=== PATIENT | female | born 1940 | race Caucasian/White ===

== ENCOUNTER 2018-12-02 14:10 | Inpatient (IN) ==
[2018-12-02] MEDS ORDERED: ZOFRAN IV ONE (14:18)
[2018-12-02] MEDS ORDERED: MORPHINE IV ONE (14:18)
[2018-12-02] MEDS ORDERED: ASPIRIN PO ONE (14:48)
[2018-12-02 14:49] LABS: BASO# 0.02 X1000 (0.0-0.2); BASO% 0.2 % (0.0-0.8); EOS# 0.09 X1000 (0.0-0.7); EOS% 0.8 % (0.0-10.0); HEMATOCRIT 43.9 % (37.0-47.0); HEMOGLOBIN 14.3 g/dL (12.0-16.0); IMM GRAN# 0.02 X1000 (0.0-0.04); IMM GRAN% 0.2 % (0.0-0.5); LYMPH% 15.1 % (20.5-51.1); MCH 28.5 PG (27-31); MCHC 32.6 g/dL (33-37); MCV 87.6 FL (81-99); MONO# 0.92 X1000 (0.11-0.59); MONO% 8.7 % (1.7-9.3); MPV 9.1 FL (7.4-10.4); NEUT# 7.97 X1000 (1.4-6.5); PLT 462 X1000 (130-400); RBC 5.01 XMIL (4.2-5.4); RDW 12.3 % (11.5-14.5); WBC 10.62 X1000 (4.8-10.8)
--- NOTE | 2018-12-02 14:51 | Diag Imaging Result Doc PS360 ---
EXAM: CHEST-2 VIEWS - 12/02/2018 HISTORY: chest pain TECHNIQUE: Chest two views COMPARISON: 05/16/2018 portable chest FINDINGS: Heart size appears within normal limits. There is some tortuosity of the thoracic aorta similar to prior. The lungs appear essentially clear. There is no pleural effusion or pneumothorax identified. IMPRESSION: No acute changes. Electronically signed by Rodger Jacobs 12/02/2018 2:48 PM
[2018-12-02 14:55] LABS: INR 0.89; PROTIME 12.8 Seconds (11.0-16.0)
[2018-12-02 14:56] LABS: PTT 30.2 Seconds (22.3-41.8)
[2018-12-02 15:11] LABS: AGAP 9; ALB/GLOB RATIO 0.9; ALBUMIN 3.4 g/dL (3.5-5.0); ALKALINE PHOSPHATASE 231 U/L (32-104); BUN 13 mg/dL (8-22); CALCIUM 9.2 mg/dL (8.8-10.2); CHLORIDE 98 mmol/L (98-107); CK PROFILE 20 U/L (24-173); COSMO 278; CREATININE 0.8 mg/dL (0.5-0.9); ESTIMATED GFR > 60; GLUCOSE 238 mg/dL (70-104); GOT 42 U/L (10-30); GPT 17 U/L (10-36); POTASSIUM 4.3 mmol/L (3.5-5.1); SODIUM 135 mmol/L (136-145); TCO2 28 mmol/L (25-35); TOTAL BILIRUBIN 0.41 mg/dL (0.20-1.00); TOTAL PROTEIN 7.3 g/dL (6.3-8.3)
--- NOTE | 2018-12-02 16:43 | PROVIDER DOCUMENTATION ---
This chart was entered by Cyndy aMria Scribe, acting as scribe for Geno Martinez MD. HPI-Chest Pain - General Chief Complaint: Chest Pain Stated Complaint: CP Time Seen by Provider: 12/02/18 14:11 Source: patient Allergies/Adverse Reactions: Patient Allergies Allergy/AdvReac Type Severity Reaction Status Date / Time brandon Allergy Unknown Verified 12/02/18 14:47 codeine Allergy NAUSEA/VOMI Verified 12/02/18 14:47 TING pineapple Allergy Unknown Verified 12/02/18 14:47 red dye Allergy Unknown Verified 12/02/18 14:47 Home Medications: Home Medication List Medication Instructions Recorded Confirmed Last Taken Type Aspirin [Aspir-Low] 81 mg PO DAILY 12/02/18 12/02/18 Unknown History Estrogens, Conjugated [Premarin] 0.625 mg PO DAILY 12/02/18 12/02/18 Unknown History Hydrochlorothiazide 25 mg PO DAILY 12/02/18 12/02/18 Unknown History Losartan [Cozaar] 100 mg PO DAILY 12/02/18 12/02/18 Unknown History - History of Present Illness-CP Nature of Presenting Problem: 78yof via EMS with hx of diabetes, HTN, hyperlipidemia c/o substernal intermittent chest pain, nausea, sob, diaphoresis since this afternoon. She reports pain with deep inspiration. She reports that she takes aspirin every day, and her last dose was this morning. EMS reports they gave the patient 2 nitro. She denies hx of cardiac disease, OR. She reports she had a stress test "a long time ago." She reports her PCP as Dr. Leong. She denies fever, chills, vomiting. Location: reports: substernal Chest Pain Radiation: reports: no radiation Quality of Pain: reports: other ("pain") Severity in ED: mild, moderate Onset/Duration: this afternoon Timing: still present, intermittent, constant Context/Activities at Onset: reports: none Modifying Factors: improves with: nothing Associated Symptoms: reports: diaphoresis, nausea, shortness of breath. denies: fever/chills, vomiting Aspirin Treatment Today: provided at home (one aspirin) Prior Chest Pain/Cardiac Workup: reports: stress test (pt reports last stress test was "a long time ago"). denies: heart attack Similar Symptoms Previously?: No Recently Seen Here or By Another Healthcare Provider: No Review of Systems - Adult - REVIEW OF SYSTEMS - ADULT Constitutional: denies: chills, fever Eyes: denies: discharge, dry eyes Ears, Nose, Mouth & Throat: denies: ear discharge, ear pain Cardiovascular: reports: chest pain. denies: palpitations Respiratory: reports: shortness of breath. denies: cough Gastrointestinal: reports: nausea. denies: diarrhea, vomiting Genitourinary: denies: dysuria, hematuria Musculoskeletal: denies: back pain, muscle aches, muscle weakness Integumentary: reports: no symptoms reported Neurological: denies: dizziness/vertigo, headache/migraines Psychiatric: reports: no symptoms reported Endocrine: reports: excessive sweating. denies: change in skin pigment Hematologic/Lymphatic: reports: no symptoms reported Allergic/Immunologic: reports: no symptoms reported All Other Systems: Reviewed and Negative Past History - Adult - PAST MEDICAL HISTORY-ADULT Review of Records: reports: Old Records Reviewed, Nursing Assessment Review, Med ications Reviewed Cardiovascular: reports: HTN, hyperlipidemia Endocrine/Immune: reports: Diabetes - PRIOR SURGERIES/PROCEDURES Surgical/Procedure History: reports: hysterectomy - IMMUNIZATION STATUS Childhood Immunizations: See Nurse Assessment Flu Vaccine: See Nurse Assessment - FAMILY HISTORY Family History: reviewed, not pertinent - SOCIAL HISTORY Smoking: non-smoker Substance Use: denies Living Situation: family Physical Exam-General - PHYSICAL EXAM-ADULT Initial Vital Signs Reviewed: Yes - CONSTITUTIONAL General Appearance: alert, mild distress, anxious, other (pt has oxygen via nasal cannula) - EYES Eyes: PERRL/EOMI, pink conjunctivae - NECK Neck: non-tender, supple - RESPIRATORY Respiratory: decreased breath sounds (throughout). negative: wheezing - CARDIOVASCULAR Cardiovascular: regular rate, rhythm, no murmur - GASTROINTESTINAL (ABDOMEN) Abdominal Exam: non tender, soft. negative: distended, guarding - SKIN Integumentary: normal color, warm/dry, diaphoresis. negative: cyanosis - NEUROLOGIC Neurologic: grossly normal, no motor/sensory deficits - PSYCHIATRIC Psych/Mental Status: oriented x 3, anxious, tearful - HEART Score HEART Score: History: Moderately Suspicious HEART Score: ECG: Normal HEART Score: Age: > or = 65 Years HEART Score: Risk Factors for Atherosclerotic Disease: > or = 3 Risk Factors or History of Atherosclerotic Disease HEART Score: Troponin: < or = Normal Limit Total HEART Score:: 5 Progress - PLAN OF CARE/RESULTS Progress/Plan/Lab Results: Vital Signs - 8 hr 12/02/18 14:21 Temperature 98.4 F Pulse Rate 82 Respiratory Rate 18 Blood Pressure 171/80 O2 Sat by Pulse Oximetry 96 Laboratory Results - last 24 hr 12/02/18 12/02/18 12/02/18 14:40 14:40 14:40 WBC 10.62 RBC 5.01 Hgb 14.3 Hct 43.9 MCV 87.6 MCH 28.5 MCHC 32.6 L RDW Std Deviation 12.3 Plt Count 462 H MPV 9.1 Immature Gran % (Auto) 0.2 Neut % (Auto) 75.0 Lymph % (Auto) 15.1 L [place] % (Auto) 8.7 Eos % (Auto) 0.8 Baso % (Auto) 0.2 Immature Gran # (Auto) 0.02 Neut # (Auto) 7.97 H Lymph # (Auto) 1.60 [place] # (Auto) 0.92 H Eos # (Auto) 0.09 Baso # (Auto) 0.02 PT INR PTT (Actin FS) Sodium 135 L Potassium 4.3 Chloride 98 Carbon Dioxide 28 Anion Gap 9 BUN 13 Creatinine 0.8 Estimated GFR/1.73 m2 > 60 BUN/Creatinine Ratio 16 Glucose 238 H Calculated Osmolality 278 Calcium 9.2 Total Bilirubin 0.41 AST 42 H ALT 17 Alkaline Phosphatase 231 H Creatine Kinase 20 L Troponin T [id number] Pept 195 Total Protein 7.3 Albumin 3.4 L Globulin 3.9 Albumin/Globulin Ratio 0.9 12/02/18 12/02/18 14:40 14:40 WBC RBC Hgb Hct MCV MCH MCHC RDW Std Deviation Plt Count MPV Immature Gran % (Auto) Neut % (Auto) Lymph % (Auto) [place] % (Auto) Eos % (Auto) Baso % (Auto) Immature Gran # (Auto) Neut # (Auto) Lymph # (Auto) [place] # (Auto) Eos # (Auto) Baso # (Auto) PT 12.8 INR 0.89 PTT (Actin FS) 30.2 Sodium Potassium Chloride Carbon Dioxide Anion Gap BUN Creatinine Estimated GFR/1.73 m2 BUN/Creatinine Ratio Glucose Calculated Osmolality Calcium Total Bilirubin AST ALT Alkaline Phosphatase Creatine Kinase Troponin T < 0.010 Yvm-P-Lekjbxdugvy Pept Total Protein Albumin Globulin Albumin/Globulin Ratio Orders Category Date Time Status Cardiac Monitoring DIRECTED Care 12/02/18 14:17 Active Oxygen Therapy- ED Nursing DIRECTED Care 12/02/18 14:17 Active Saline Loc NOW Care 12/02/18 14:17 Active CHEST-2 VIEWS [RAD] Stat Exams 12/02/18 14:17 Completed CBC WITH ELECTRONIC DIFF [HEME] Stat Lab 12/02/18 14:40 Completed CK PROFILE [SP CHEM] Stat Lab 12/02/18 14:40 Completed COMPREHENSIVE METABOLIC PANEL [CHEM] Stat Lab 12/02/18 14:40 Completed PRO B-NATRIURETIC PEPTIDE Stat Lab 12/02/18 14:40 Completed PROTIME WITH INR [COAG] Stat Lab 12/02/18 14:40 Completed PTT [COAG] Stat Lab 12/02/18 14:40 Completed TROPONIN T Stat Lab 12/02/18 14:40 Completed TROPONIN T Stat Lab 12/02/18 16:30 Received Aspirin Med 12/02/18 14:48 Discontinued 325 mg PO NOW ONE Morphine Med 12/02/18 14:18 Discontinued 4 mg IV NOW ONE Ondansetron [Zofran] Med 12/02/18 14:18 Discontinued 4 mg IV NOW ONE CP/SOB/Palp >45 yrs of Age Stat Oth 12/02/18 14:17 Ordered EKG [EKG] Stat Ther 12/02/18 14:17 Ordered Result Diagrams: 12/02/18 14:40 12/02/18 14:40 - EKG 1 Time of EKG reading by physician:: 14:17 EKG Read and Signed by:: Geno Martinez EKG Interpretation (*Must complete 3 of following elements*): Normal Rate: 93 Rhythm: Normal sinus rhythm [place]: normal ST Wave: normal Comments: - ST elevation 2 Time of EKG reading by physician:: 16:30 EKG Read and Signed by:: Geno Martinez EKG Interpretation (*Must complete 3 of following elements*): Abnormal Rate: 95 Rhythm: Sinus rhythm [place]: normal ST Wave: normal Comments: - ST elevation - XRAY 1 XRAY Study: Chest Impression: Abnormal (FINDINGS: Heart size appears within normal limits. There is some tortuosity of the thoracic aorta similar to prior. The lungs appear essentially clear. There is no pleural effusion or pneumothorax identified. IMPRESSION: No acute changes. Electronically signed by Rodger Jacobs 12/02/2018 2:48 PM) - CONSULTS/PCP/HOSPITALIST Notification #1 *Consult/PCP/Hospitalist*: Dr Madden Time Discussed: 16:41 Consult Disposition: Will see in ED, Admit Departure - Departure Date of Disposition Decision: 12/02/18 Time of Disposition Decision: 16:42 DIAGNOSIS: Chest pain Disposition: ADMITTED INPATIENT 09 Certified Medical Emergency: Emergent Condition: Stable Referrals and Follow-Ups: Jaquan Leong MD [Primary Care Provider] - - Critical Care Note This patient required my direct & personal management of CC.: No Attestation - Physician/ CECILIO Attestation Patient care was provided by Advanced Practice Provider:: No The physician spent face to face time with patient:: Yes Advanced Practice Provider documentation review:: Supervising physician onsite and consulted in the evaluation and care of this patient. The physician did have a face to face encounter with the patient. This chart was documented by the indicated scribe, (Cyndy Maria Scribe) and accurately reflects the services I performed and decisions made by me, Geno Martinez MD, as attested by the provider's signature.
[2018-12-02] MEDS ORDERED: TYLENOL PO PRN (18:19)
--- NOTE | 2018-12-02 19:53 | HISTORY AND PHYSICAL ---
PRIMARY CARE PHYSICIAN: Dr. Jaquan Leong. CHIEF COMPLAINT: Chest pain. HISTORY OF PRESENT ILLNESS: A 78-year-old white female with past medical history significant for diabetes, hypertension, reflux disease, allergic rhinitis, and chronic low back pain presents for evaluation of above-mentioned symptoms. Current history of present illness began at approximately 11 a.m. this morning. The patient states at that time she walked to her porch. Upon sitting patient developed acute onset left chest pain. Initially the pain was described as located in the lateral aspect of her chest. Quickly, this radiated to the medial chest and to the left jaw. She developed nausea, shortness of breath and diaphoresis. She described the pain as an intense heaviness. Because of her symptoms, she contacted EMS immediately. Upon arrival, a nitroglycerin was provided. The patient noted significant improvement in her symptoms initially. Within several minutes the pain returned. An additional nitroglycerin was provided. With this, the pain has essentially resolved. She described a only a mild heaviness in the lower rib region since that time. EMS transported the patient to the emergency department immediately. Upon arrival, full evaluation was pursued. EKG demonstrates no evidence of acute ST or T-wave abnormalities. Initial set of cardiac enzymes returned negative. Because of patient's convincing history and with a history of diabetes, hypertension and a family history of coronary artery disease, patient will be admitted to the hospital for full evaluation and management of this condition. PAST MEDICAL HISTORY: 1. Type 1 diabetes. 2. Hypertension. 3. Reflux disease. 4. Low back pain status post surgery x2. 5. Neuropathy. 6. Allergic rhinitis. CURRENT MEDICATIONS: 1. Humalog 75/25, 35 units in the morning and 28 units in the evening. 2. Hydrochlorothiazide 25 mg daily. 3. Losartan 100 mg daily. 4. Estrogen conjugated 0.625 mg daily. 5. Aspirin 81 mg daily. 6. Pantoprazole 40 mg daily. 7. Burd[place] 7.5/325 one tablet 4 times daily as needed. ALLERGIES: The patient states codeine causes agitation. SOCIAL HISTORY: Patient is a retired nurse. She denies tobacco, alcohol and illicit drug use. FAMILY HISTORY: Patient's father passed at age 61 secondary to complications of metastatic cancer, NOS. Patient's mother passed at age 80 secondary to complications of congestive heart failure. The patient has had 2 sisters pass with an acute coronary , 1 at age 68 and 1 at age 76. REVIEW OF SYSTEMS: A 12-point review of systems was performed. Pertinent positives and negatives noted in history present illness. PHYSICAL EXAMINATION: VITAL SIGNS: Temperature 98.4 degrees, heart rate 82, respirations 18, blood pressure is 171/80. GENERAL: Well nourished, well developed, no acute distress. HEENT: Normocephalic, atraumatic. Pupils equal, round, react to light. Extraocular muscles intact. Sclerae anicteric. [place] conjunctivae. Oral and nasopharynx clear without exudate. NECK: Supple. No lymphadenopathy. No thyromegaly. No bruits auscultated. CARDIOVASCULAR: Regular rate and rhythm. No significant murmurs, rubs, or gallops. PULMONARY: Clear to auscultation bilaterally. ABDOMEN: Soft, nontender, nondistended. Positive bowel sounds. EXTREMITIES: Moves all extremities well. No significant clubbing, cyanosis or edema. NEUROLOGIC: Cranial nerves 2-12 grossly intact. Motor and sensory grossly intact. PSYCHOLOGIC: Reveals underlying anxiety. MUSCULOSKELETAL: Reveals some pain to palpation of the left lower anterior ribs. LABORATORY DATA: White blood cell count 10.62, hemoglobin 14.3, hematocrit 43.9, platelet count 462,000. PT 12.8, INR 0.89, PTT is 30.2. Sodium 135, potassium 4.3, chloride 98, bicarb 28, BUN 13, creatinine 0.8, glucose 238, calcium 9.2, total bilirubin 0.41, total protein 7.3, albumin 3.4, alkaline phosphatase 231, AST 42, ALT 17, CK total 20, troponin less than 0.010. Chest x- ray revealed no acute changes. ASSESSMENT AND PLAN: A 78-year-old white female with past medical history as noted presents for evaluation of chest discomfort. Initial presentation is quite concerning for the possibility of underlying ischemic heart disease. Patient does have a very strong family history as she has had 2 sisters pass at a young age with an acute coronary . On examination today, patient does have some pain to palpation of the left lower anterior ribs. This pain is described as intense, but different from her previous heaviness. The patient will be admitted to the hospital for full evaluation and management of unstable angina. 1. Admit to General Medicine. 2. Unstable angina-initial cardiac enzymes are negative. EKG is negative. Chest x-ray is negative. Patient did, however, achieve improvement with nitroglycerin. At this point, I do feel inpatient evaluation is most appropriate. We will place patient on telemetry. We will follow patient with cardiac enzymes every 8 hours. We will recheck an EKG in the morning. Plan to consult Cardiology in the morning. We will defer ischemic evaluation to cardiology's discretion. 3. Diabetes-patient has longstanding disease. This certainly increases the risk for underlying ischemic heart disease. She is treated with Humalog 75/25, 35 units in the morning and 28 units in the evening at home. We will decrease the dosage to 25 units in the morning and 20 units in the evening while hospitalized with a change in her diet. We will follow serial Accu- Cheks. We will determine if further adjustment is necessary. 4. Hypertension-blood pressure today is elevated. For now, we will continue losartan and hydrochlorothiazide. We will place 1/2 inch of nitroglycerin paste as she has achieved improvement in her chest pain with nitroglycerin. We will follow this as well. 5. Reflux disease-we will continue patient on pantoprazole therapy. We will remain aware that reflux could present in a similar fashion. 6. Low back pain-patient has chronic disease. We will continue patient on as-needed [place] therapy. 7. Fluid, electrolytes, nutritional. Monitor electrolytes. Saline lock IV. Cardiac prudent diet, NPO after midnight. 8. Prophylaxis. The patient will be placed on subcu Lovenox. cc: MD Jaquan De Leon MD
[2018-12-02] MEDS: NITROGLYCERIN TOP SCH (21:05)
[2018-12-02] MEDS: LOVENOX SUBQ SCH (21:05)
[2018-12-02] MEDS: NORCO-7.5 PO PRN (21:06)
[2018-12-03] MEDS: ZOFRAN IV PRN ×3 (00:03→21:57)
[2018-12-03] MEDS: NITROGLYCERIN TOP SCH ×2 (03:33→09:20)
[2018-12-03 05:47] LABS: BASO# 0.03 X1000 (0.0-0.2); BASO% 0.4 % (0.0-0.8); EOS# 0.18 X1000 (0.0-0.7); EOS% 2.6 % (0.0-10.0); HEMATOCRIT 42.8 % (37.0-47.0); LYMPH# 1.43 X1000 (1.2-3.4); LYMPH% 20.7 % (20.5-51.1); MCH 28.6 PG (27-31); MCHC 32.7 g/dL (33-37); MCV 87.5 FL (81-99); MONO# 0.88 X1000 (0.11-0.59); MONO% 12.8 % (1.7-9.3); MPV 9.6 FL (7.4-10.4); NEUT# 4.38 X1000 (1.4-6.5); NEUT% 63.5 % (42.2-75.2); PLT 412 X1000 (130-400); RBC 4.89 XMIL (4.2-5.4); RDW 12.3 % (11.5-14.5)
[2018-12-03 06:12] LABS: AGAP 11; ALB/GLOB RATIO 1.1; ALBUMIN 3.3 g/dL (3.5-5.0); ALKALINE PHOSPHATASE 327 U/L (32-104); BUN 10 mg/dL (8-22); CHLORIDE 101 mmol/L (98-107); COSMO 284; CREATININE 0.6 mg/dL (0.5-0.9); ESTIMATED GFR > 60; GLUCOSE 234 mg/dL (70-104); GOT 181 U/L (10-30); GPT 91 U/L (10-36); POTASSIUM 4.5 mmol/L (3.5-5.1); SODIUM 139 mmol/L (136-145); TCO2 27 mmol/L (25-35); TOTAL BILIRUBIN 0.94 mg/dL (0.20-1.00); TOTAL PROTEIN 6.2 g/dL (6.3-8.3)
[2018-12-03] MEDS: HUMALOG MIX 75/25 SUBQ SCH ×2 (06:25→06:29)
[2018-12-03] MEDS: HYDROCHLOROTHIAZIDE PO SCH (09:19)
[2018-12-03] MEDS: COZAAR PO SCH (09:19)
[2018-12-03] MEDS: NORCO-7.5 PO PRN (09:19)
[2018-12-03] MEDS: PREMARIN PO SCH (09:19)
[2018-12-03] MEDS: ASPIRIN EC PO SCH (09:19)
--- NOTE | 2018-12-03 10:47 | PROGRESS NOTE ---
DATE: 12/03/2018 SUBJECTIVE: Patient was admitted yesterday with left-sided chest discomfort and associated nausea, shortness of breath and diaphoresis. Initial set of cardiac enzymes were negative. EKG returned negative. The patient was followed with telemetry and serial cardiac enzymes overnight. Cardiac enzymes remain negative. This morning, patient is extremely anxious. She is tearful during my interview. She is questioning why she is NPO. She also notes having a history of anxiety and difficulty with change. In addition to anxiety, patient does note some weakness as well as some "shakiness." She denies significant chest discomfort at present time. She has developed mild right upper quadrant pain. She denies fevers, chills, nausea, vomiting, or shortness of breath at present time. OBJECTIVE: T-max 98.4 degrees, heart rate 70 to 82, respirations 18, blood pressure 140 to 171 over 65 to 81.General: Well nourished, well developed, no acute distress. Cardiovascular: Regular rate and rhythm. No significant murmurs, rubs, or gallops. Pulmonary: Clear to auscultation bilaterally. Abdomen: Soft tenderness to palpation in the right upper quadrant. No guarding or rebound. Positive bowel sounds. Extremities: Moves all extremities well. No significant clubbing, cyanosis, or edema. Dermatologic: Evaluation reveals no evidence of rash. LABORATORY DATA: White blood cell count 6.90, hemoglobin 14.0, hematocrit 42.8, platelet counts 412,000. Sodium 139, potassium 4.5, chloride 101, bicarb 27, BUN 10, creatinine 0.6, glucose 234, calcium 9.0, total bilirubin 0.94, total protein 6.2, albumin 3.3, alkaline phosphatase 327, AST 181, ALT 91. ASSESSMENT AND PLAN: 1. Unstable angina/chest discomfort-the patient's presentation was concerning for possible ischemic etiology. Patient does have a of recent family history of 2 sisters passing with a presumed acute coronary . The patient's cardiac enzymes, thus far, have been negative. EKG demonstrates no evidence of ischemic change. Cardiology has been consulted. We will defer Cardiology opinion to his discretion. At this point, with elevated transaminases as described below, chest discomfort, may be gastrointestinal in origin. 2. Transaminitis/elevated alkaline phosphatase-this is quite interesting. Levels have increased considerably from yesterday. This raises the question as to the etiology. Certainly gallbladder disease with a transient passed stone is a consideration. Medication induced also is to be considered. The only new medications from yesterday are Lovenox and nitroglycerin. These seem less likely to be a culprit. We will check an abdominal ultrasound today. We will determine if further intervention is necessary. 3. Diabetes - Patient has longstanding disease. As she is in NPO, we will discontinue her Humalog 75/25. We will transition patient to sliding scale insulin. We will resume home regimen once her diet has been resumed. 4. Hypertension-the patient's blood pressure is slightly elevated despite losartan, hydrochlorothiazide, losartan and Nitropaste. For now, we will continue her current regimen. 5. Reflux disease-we will continue patient on pantoprazole therapy. 6. Low back pain-patient has chronic disease. We will continue as needed [place] therapy. 7. Anxiety-unfortunately, patient's anxiety is very high this morning. I discussed this in detail with her and her son. We will start patient on low-dose Xanax to be used as needed. The patient better understand our current plan. For evaluating both heart and right upper quadrant pain. I suspect that with better understanding, her anxiety also may improve. 8. Prophylaxis-we will continue patient on subcutaneous Lovenox. Should gallbladder ultrasound returned abnormal, we will need to consider discontinuing this prior to surgical intervention. 9. Nutrition-the patient will remain NPO for her ultrasound. We will resume a diet if this returns without biliary obstruction. We will follow this. 10. Disposition-at this point, patient continues to require penitentiary care in a hospital setting. We will plan discharge home once appropriate. cc: MD Jaquan De Leon MD
[2018-12-03] MEDS: XANAX PO PRN ×2 (11:00→22:08)
--- NOTE | 2018-12-03 11:15 | Diag Imaging Result Doc PS360 ---
EXAM: US GB < RUQ (LIMITED) HISTORY: RUQ pain/ transaminitis TECHNIQUE: Right upper quadrant ultrasound COMPARISON: None. FINDINGS: Normal pancreas. Normal inferior vena cava. No abdominal aortic aneurysm. No hepatic abnormality. Normal right kidney. No hydronephrosis. There is sludge within the gallbladder. There is gallbladder wall thickening. Questionable gallbladder diverticula with sludge versus fluid in the gallbladder wall. The common bile duct measures 6 mm. IMPRESSION: Findings suspicious for cholecystitis Electronically signed by Gregory Beck 12/03/2018 11:13 AM
--- NOTE | 2018-12-03 11:25 | CARDIOLOGY CONSULTATION ---
DATE: 12/03/2018 REASON FOR CONSULTATION: Cardiology was consulted for chest pain. HISTORY OF PRESENT ILLNESS: Ms. Ila Dean is a 78-year-old lady, who was admitted with chest pain, diaphoresis. Her cardiac enzymes were negative. Electrocardiogram was normal. She has history of diabetes, family history of coronary artery disease, comes with complaints of having chest discomfort which she describes as a tightness, and a left-sided chest pain when she came in. The chest pain radiated to her left jaw and she described the pain as intense and heavy. She contacted the EMS and was brought to the emergency room and subsequently admitted. This morning she was set up to have an abdominal ultrasound given her abnormal liver function test and patient stated that while they were doing the ultrasound she had discomfort in her right hypochondrium and she has also noticed some tightness across her lower chest and abdominal area as well. There were no palpitations, there was no dizziness or syncope. She denies any fevers or chills. A 14 point review of systems was done. REVIEW OF SYSTEM: GI: As above. In addition, there is no history of hematemesis or melena. Central nervous system: No focal weakness to suggest a CVA or TIA. Genitourinary: There is no dysuria or hematuria. Respiratory System: There is no history of cough, expectoration, hemoptysis. There is no history of fevers or chills. PAST MEDICAL HISTORY: 1. Diabetes. 2. Hypertension. 3. Gastroesophageal reflux disease. 4. Neuropathy. 5. Allergic rhinitis. PAST SURGICAL HISTORY: Back surgery. ALLERGIES: She is allergic to brandon, codeine, pineapple, red dye. HOME MEDICATIONS: 1. Mclean. 2. Protonix 40. 3. Enteric-coated aspirin. 4. Losartan 100. 5. Humalog 75-25, as directed. 6. Hydrochlorothiazide 25. SOCIAL HISTORY: Patient is a retired nurse. FAMILY HISTORY: Patient's father passed at 61, complications of metastatic cancer. Mother passed at 80. The patient has 2 sisters with acute coronary, one at the age of 68, one at the age of 76. PHYSICAL EXAMINATION: Vitals: Blood pressure 161/81. HEENT: Atraumatic, normocephalic. Pupils were equal and reacting to light. Cardiovascular System: Normal jugular venous pressure. There is no thyromegaly. No carotid bruit. First and second heart sounds were heard. There was no S3-S4 gallop. Respiratory system: Normal air entry. There is no crepitations or rhonchi. Abdomen: Soft with some tenderness right upper quadrant. Central nervous system: Alert, was moving all 4 extremities. Extremities: Revealed no pedal edema. LABORATORY: Chemistry: Revealed sodium 139, potassium 4.5, BUN 10, creatinine 0.6. Abnormal liver function tests. AST 1181, ALT 91, alkaline phosphatase 327, which were abnormal and worsening since her admission last night. 3 sets of cardiac enzymes were negative. Hematology: WBC 6.9, hemoglobin 14, hematocrit 42, platelet count of 412,000. IMAGING: Chest x-ray unremarkable. ASSESSMENT AND PLAN: 1. Ms. Ila Dean is a 78-year-old lady with history of hypertension, diabetes, family history of coronary artery disease, comes with complaints of having left-sided chest pain with radiation to the jaw. However, since her admission, her liver function tests were abnormal and she has undergone right upper quadrant ultrasound, which is suggestive of sludge with thickening of the gallbladder; however, this was a verbal note and a detailed official note on the ultrasound of the gallbladder is pending. She also complains of having tenderness at the right hypochondrium. Given this, her symptoms are probably related to gallbladder issues. I would recommend proceeding with further workup and surgery, if needed. 2. From a cardiac standpoint, she has been ruled out for myocardial infarction by cardiac enzymes. Electrocardiogram was normal and we will get an echocardiogram to assess cardiac and valvular function. 3. Hypertension. Continue with home medications, diabetes. Thank you for the consult. We will follow hospital course. cc: MD Jaquan Mosley MD
[2018-12-03] MEDS: HUMALOG SUBQ SCH ×3 (12:22→21:53)
[2018-12-03] MEDS: ZOSYN 3.375 GM in NS 50 ML IV SCH ×2 (12:23→18:17)
[2018-12-03] MEDS ORDERED: DIPRIVAN 1% ONE (13:37)
[2018-12-03] MEDS ORDERED: QUELICIN (DOSE) ONE (13:43)
[2018-12-03] MEDS ORDERED: ROBINUL ONE ×2 (13:43→14:53)
[2018-12-03] MEDS ORDERED: XYLOCAINE-MPF 2% ONE (13:43)
[2018-12-03] MEDS ORDERED: NEOSTIGMINE ONE ×2 (14:03→15:50)
[2018-12-03] MEDS ORDERED: SODIUM CHLORIDE 0.9% ONE (14:15)
[2018-12-03] MEDS ORDERED: LR 1,000 ML ONE (14:15)
[2018-12-03] MEDS ORDERED: SENSORCAINE-MPF 0.5%/EPI 1:200,000 ONE (14:15)
--- NOTE | 2018-12-03 14:37 | GENERAL SURGERY CONSULTATION ---
DATE: 12/03/2018 REQUESTING PHYSICIAN: Is Dr. Tommy Madden. CONSULT CONCERNING: Cholecystitis. HISTORY OF PRESENT ILLNESS: A 78-year-old female with past medical history for diabetes, hypertension, reflux disease, chronic lower back pain, presented initially for chest pain began yesterday. She was given standard workup for chest pain and found to have no obvious source. She was admitted and then noted today to have elevation in her LFTs, concerning for gallbladder issue. She had an ultrasound that showed cholecystitis. She does report right upper quadrant pain. I was asked to weigh an opinion. PAST MEDICAL HISTORY: 1. Includes diabetes mellitus type 1. 2. Hypertension. 3. Gastroesophageal reflux disease. 4. Low back pain. 5. Neuropathy. 6. Allergic rhinitis. PAST SURGICAL HISTORY: Includes hysterectomy, back surgery, breast reduction, shoulder surgery. HOME MEDICATIONS: Reviewed. ALLERGIES: Codeine. SOCIAL HISTORY: Retired nurse. Denies alcohol, tobacco, or illicit drugs. FAMILY HISTORY: Positive for metastatic cancer, congestive heart failure, acute coronary disease. REVIEW OF SYSTEMS: Full 10 point review of systems obtained negative as specified in HPI. PHYSICAL EXAM: Vital Signs: Patient is currently afebrile. Her vital signs are stable. General: No acute distress but appears uncomfortable female looks stated age. HEENT: Normocephalic, atraumatic. Pupils equal, round, reactive to light. Mucous membranes moist. Oropharynx benign. Neck: Supple, trachea midline. Cardiovascular: Regular rate and rhythm. Lungs: Grossly clear. Abdomen: Soft, tender to palpation right upper quadrant. Positive Quintanilla sign. Extremities: Moves all extremities. Neurologic: Grossly intact. Skin: No signs of jaundice. Vascular: All extremities perfused. LABORATORY: White blood count is normal, hematocrit is normal, platelet count normal. AST slightly elevated at 118, ALT is elevated at 91, alkaline phosphatases elevated at 327, bilirubin 0.94 which is increased since admission. Ultrasound reviewed and imaging report noted. ASSESSMENT AND PLAN: A 78-year-old female with cholecystitis. Cholecystitis. At this time this could be likely the cause of her chest pain. Given these findings, will plan on surgical intervention. Discussed with the risks, benefits, alternatives of the procedure risks including but not limited to bleeding, infection, risk of anesthesia, risk of common bile duct injury, risk of bile leak, risk of injuring surrounding organs discussed. She wants to proceed. Will try to do a cholangiogram at the time. cc: MD Jaquan Sue MD MTDD
[2018-12-03] MEDS ORDERED: ZOFRAN ONE ×2 (14:53→17:03)
[2018-12-03] MEDS ORDERED: ZEMURON ONE (14:53)
--- NOTE | 2018-12-03 15:52 | ECHO REPORT ---
ORDER DATE: 12/03/2018 2-D ECHOCARDIOGRAM: ECHOCARDIOGRAPHIC MEASUREMENTS: 1. Interventricular septum 1.2. 2. Left ventricular posterior wall 0.9. 3. Diastolic diameter 4.0. 4. Left atrium 3. 5. Aorta 3.0. SUMMARY: 1. Aortic valve leaflets are trileaflet. 2. Pulmonic valve was normal. Tricuspid valve was normal. Mitral valve was normal. Normal left ventricular cavity size. Estimated ejection fraction of 65-70%. 3. There is mitral annular calcification. 4. There is mild tricuspid regurgitation. Peak velocity across the tricuspid valve was 2.6 m/sec. Pulmonary artery systolic pressure of 38 mmHg. 5. Peak velocity across the aortic valve less than 2 m/sec. There is no aortic stenosis or regurgitation. 6. There is diastolic dysfunction. 7. There is mild mitral regurgitation. 8. Peak velocity across the aortic valve less than 2 m/sec. There is no aortic stenosis or regurgitation. 9. There is no pericardial effusion or obvious intracardiac mass or thrombus seen. cc: MD Jaquan Mosley MD
[2018-12-03] MEDS ORDERED: HUMALOG MIX 75/25 SUBQ SCH (16:00)
[2018-12-03] MEDS ORDERED: LR 500 ML ONE (16:41)
[2018-12-03] MEDS: DILAUDID ONE ×6 (16:43→17:35)
[2018-12-03] MEDS ORDERED: OFIRMEV 1000 MG/ISOTONIC SOLN 1,000 MG/100 ML BOTTLE ONE (17:41)
[2018-12-03] MEDS ORDERED: NITROGLYCERIN ONE (17:41)
[2018-12-03] MEDS ORDERED: NORCO-7.5 ONE (18:30)
[2018-12-03] MEDS ORDERED: NS 1,000 ML ONE (18:49)
[2018-12-03] MEDS ORDERED: NITROGLYCERIN SL PRN (18:52)
[2018-12-03] MEDS ORDERED: MORPHINE IV PRN (18:53)
--- NOTE | 2018-12-03 19:52 | OPERATIVE NOTE ---
PROCEDURE DATE: 12/03/2018 PREOPERATIVE DIAGNOSIS: Cholecystitis. POSTOPERATIVE DIAGNOSIS: Suppurative cholecystitis. PROCEDURE: Laparoscopic cholecystectomy. SURGEON: Kevin Leon MD. DISPATCH SUPERVISOR: None. ANESTHESIA: General endotracheal. OPERATIVE FINDINGS: Very difficult surgery secondary to a very thickened gallbladder, pus in the gallbladder noted making a suppurative cystic duct was very friable and short, but I think I was able to get clips across it. Thickness of the gallbladder does raise the suspicion for the possibility of malignancy versus just very inflamed gallbladder. COMPLICATIONS: None at the time of this dictation. ESTIMATED BLOOD LOSS: 100 mL. SPECIMENS REMOVED: Gallbladder. DRAINS: A 19-Chinese drain. BRIEF HISTORY: A 78-year-old female presenting with chest pain. Through workup it was found that she had cholecystitis. We did discuss the risks, benefits and alternatives of procedure. Risks including but not limited to bleeding, infection, risk of anesthesia, risk of common bile duct injury and bile leak. Risk of injuring other organs discussed. All questions answered. DESCRIPTION OF PROCEDURE: After informed consent was obtained, the patient brought to the operative theatre, transferred to the operating table, and placed in supine position. General endotracheal anesthesia was then performed without complication. A formal time out was then performed confirming patient, date, procedure. All in agreement. At that time, attention was given to the abdomen. An infraumbilical incision was made through which using Optiview technique we inserted an 11 mm trocar, connected insufflation. Pneumoperitoneum was achieved. Under direct visualization, we placed three more trocars, all 5 mm, one subxiphoid, two in the right upper quadrant. Using these, the gallbladder was identified. It was very inflamed, very difficult to grasp. It was very thickened, but we were able to bluntly dissect some omentum off and retract the gallbladder up with some difficulty cephalad. We were able to dissect out the cystic duct. It was very short and very friable. I initially tried to dissect around and place a clip. The 1st several clips fell off after we did the ductotomy. We placed several clips in the area and attempted to place an Endoloop. I think we were able to get two good clips across it. We irrigated out the area where the cystic duct was and I did not see any continued drainage of bile. We were unable to perform a cholangiogram given the short length of the cystic duct. Purulence came out of the gallbladder side of the cystic duct. We then continued to dissect out the gallbladder. I believe that her cystic artery was incorporated in those previous clips. But we dissected the gallbladder off the gallbladder fossa. I had to leave part of it in the posterior- superior aspect on the liver itself, but we bovied the mucosa. It was very thickened, very inflamed, very edematous, and again purulence was in it. We irrigated out the abdomen, but there was significant amount of bleeding with 100 mL total during the procedure. Given this the concern of the cystic duct and how inflamed the gallbladder was and the purulence, elected to leave a drain. We placed it in after we had removed the gallbladder completely from the gallbladder fossa. We irrigated out the abdomen copiously, but there was still a significant amount of blood in the area that was not amenable to draining from the suction. We secured the drain in place with the most lateral trocar, placed the gallbladder in an Endobag and brought it out through the infraumbilical incision that had to be enlarged. We then removed all trocars, disconnected insufflation. Pneumoperitoneum was released. We then closed all skin incisions after closing the infraumbilical incision with [id number] stitches of 0 Vicryl. All skin incisions were closed with 4-0 Monocryl. The patient tolerated the procedure well. She was transferred back to the recovery room. I updated the family on the risk of bile leak and the potential for other findings in the pathology. She will need to stay on antibiotics for at least several days. cc: MD Jaquan Sue MD MTDD
[2018-12-03] MEDS: NS 1,000 ML IV SCH (21:49)
[2018-12-03] MEDS: LOVENOX SUBQ SCH (21:52)
[2018-12-03] MEDS: MORPHINE IV PRN (21:57)
[2018-12-04] MEDS: MORPHINE IV PRN ×3 (00:13→04:22)
[2018-12-04] MEDS: ZOSYN 3.375 GM in NS 50 ML IV SCH ×4 (00:41→17:15)
[2018-12-04] MEDS: NORCO-7.5 PO PRN ×2 (00:52→05:05)
[2018-12-04] MEDS: NS 1,000 ML IV SCH ×2 (05:06→15:44)
[2018-12-04] MEDS ORDERED: DILAUDID IV PRN (05:58)
[2018-12-04] MEDS: XANAX PO PRN (06:53)
[2018-12-04] MEDS: HUMALOG SUBQ SCH ×4 (06:53→22:20)
--- NOTE | 2018-12-04 07:31 | EKG Report ---
Test Performed on : 12/03/2018 5:17:00 PM Test Reason : chest pain Blood Pressure : / mmHG Vent. Rate : 077 BPM Atrial Rate : 077 BPM P-R Int : 142 ms QRS Dur : 070 ms QT Int : 384 ms P-R-T Axes : 029 -15 035 degrees QTc Int : 434 ms Sinus rhythm. with marked sinus arrhythmia. Otherwise normal ECG When compared with ECG of 03-DEC-2018 06:22, (Unconfirmed) No significant change was found Confirmed by oSnny MALIK, Patrice ([id number]) on 12/04/2018 9:06:41 AM
--- NOTE | 2018-12-04 07:35 | EKG Report ---
Test Performed on : 12/03/2018 06:22:02 AM Test Reason : chest pain Blood Pressure : / mmHG Vent. Rate : 080 BPM Atrial Rate : 080 BPM P-R Int : 136 ms QRS Dur : 076 ms QT Int : 368 ms P-R-T Axes : 033 -03 063 degrees QTc Int : 424 ms Normal sinus rhythm. Normal ECG When compared with ECG of 02-DEC-2018 16:25, (Unconfirmed) Sinus rhythm. has replaced Electronic ventricular pacemaker Confirmed by Sonny MALIK, Patrice ([id number]) on 12/04/2018 9:04:23 AM
[2018-12-04 07:42] LABS: BASO# 0.01 X1000 (0.0-0.2); BASO% 0.1 % (0.0-0.8); EOS# 0.06 X1000 (0.0-0.7); EOS% 0.4 % (0.0-10.0); HEMATOCRIT 41.4 % (37.0-47.0); HEMOGLOBIN 13.3 g/dL (12.0-16.0); IMM GRAN# 0.03 X1000 (0.0-0.04); IMM GRAN% 0.2 % (0.0-0.5); LYMPH# 0.63 X1000 (1.2-3.4); LYMPH% 4.6 % (20.5-51.1); MCH 28.4 PG (27-31); MCHC 32.1 g/dL (33-37); MCV 88.3 FL (81-99); MONO% 9.5 % (1.7-9.3); MPV 9.5 FL (7.4-10.4); NEUT# 11.65 X1000 (1.4-6.5); NEUT% 85.2 % (42.2-75.2); RBC 4.69 XMIL (4.2-5.4); RDW 12.6 % (11.5-14.5); WBC 13.68 X1000 (4.8-10.8)
[2018-12-04 08:11] LABS: AGAP 19; ALB/GLOB RATIO 0.8; ALBUMIN 2.9 g/dL (3.5-5.0); ALKALINE PHOSPHATASE 242 U/L (32-104); BUN 12 mg/dL (8-22); CALCIUM 8.3 mg/dL (8.8-10.2); CHLORIDE 95 mmol/L (98-107); COSMO 281; CREATININE 0.8 mg/dL (0.5-0.9); ESTIMATED GFR > 60; GLUCOSE 335 mg/dL (70-104); GOT 49 U/L (10-30); GPT 69 U/L (10-36); POTASSIUM 4.2 mmol/L (3.5-5.1); SODIUM 134 mmol/L (136-145); TCO2 20 mmol/L (25-35); TOTAL BILIRUBIN 0.58 mg/dL (0.20-1.00); TOTAL PROTEIN 6.7 g/dL (6.3-8.3)
[2018-12-04 08:13] LABS: BANDS 5 % (0-1); LYMPHS 5 % (21-51); MONO 9 % (1-9); SEGS 81 % (42-75)
[2018-12-04 08:17] LABS: PLT 459 X1000 (130-400)
[2018-12-04] MEDS ORDERED: BASAGLAR SUBQ ONE (08:51)
[2018-12-04] MEDS: OFIRMEV 1000 MG/ISOTONIC SOLN 1,000 MG/100 ML BOTTLE IV SCH ×2 (09:36→17:15)
[2018-12-04] MEDS: PREMARIN PO SCH (09:37)
[2018-12-04] MEDS: COZAAR PO SCH (09:37)
[2018-12-04] MEDS: ASPIRIN EC PO SCH (09:37)
[2018-12-04] MEDS: XANAX PO SCH ×2 (09:37→20:06)
--- NOTE | 2018-12-04 09:47 | GENERAL SURGERY PROGRESS NOTE ---
DATE: 12/04/2018 SUBJECTIVE: Patient had a rough night complaining of significant pain. I have adjusted her pain medicine. OBJECTIVE: Vital Signs: Patient is currently afebrile. Vital signs have been stable. General: Upon entering the room, patient was resting but became more agitated while I examined her. Cardiovascular: Regular rate and rhythm. Lungs: Grossly clear. Abdomen: Tender to palpation right upper quadrant seems appropriate on exam. NHAN drains in place with mostly just serosanguineous output. I do not see any bile noted in the drains. LABORATORY: Currently pending for this morning. ASSESSMENT AND PLAN: A 78-year-old female status post laparoscopic cholecystectomy for suppurative cholecystitis. 1. Postoperative state at this time. Her cholecystectomy was very difficult secondary to the inflammation of the gallbladder. I think this is contributing at to her postoperative pain. She also had a significant amount of oozing and bleeding, which may be irritating her intra- abdominal compartment. I think the patient also has some degree of anxiety, which may be exacerbated by the postoperative pain. I have changed her pain medicine around. I have put her on a clear liquid diet. Hopefully with time she will start to heal up and start to have less pain. 2. We will keep a close eye on her Prosper-Watts drain. At this point, just has sanguinous output. I do not see any obvious bile but we will have to keep an eye on it. We will keep her on antibiotics for at least another couple days and monitor as we try to control her pain. cc: MD Jaquan Sue MD
--- NOTE | 2018-12-04 10:52 | EKG Report ---
Test Performed on : 12/02/2018 2:15:28 PM Test Reason : chest pain Blood Pressure : / mmHG Vent. Rate : 093 BPM Atrial Rate : 093 BPM P-R Int : 142 ms QRS Dur : 072 ms QT Int : 340 ms P-R-T Axes : 049 -18 050 degrees QTc Int : 422 ms Normal sinus rhythm. Normal ECG When compared with ECG of 16-MAY-2018 22:15, No significant change was found Unconfirmed Result
--- NOTE | 2018-12-04 10:56 | EKG Report ---
Test Performed on : 12/02/2018 4:25:16 PM Test Reason : chest pain Blood Pressure : / mmHG Vent. Rate : 095 BPM Atrial Rate : 095 BPM P-R Int : 144 ms QRS Dur : 068 ms QT Int : 346 ms P-R-T Axes : 038 -07 041 degrees QTc Int : 434 ms Sinus rhythm. with occasional ventricular-paced complexes Abnormal ECG When compared with ECG of 02-DEC-2018 14:15, (Unconfirmed) Electronic ventricular pacemaker has replaced Sinus rhythm. Unconfirmed Result
[2018-12-04] MEDS: RELISTOR SUBQ ONE (12:31)
[2018-12-04] MEDS: DILAUDID IV PRN ×2 (12:38→20:06)
--- NOTE | 2018-12-04 13:43 | PROGRESS NOTE ---
DATE: 12/04/2018 SUBJECTIVE: The patient was admitted over the weekend with chest pain, which turned out to be a severely diseased gallbladder with cholecystitis. She is status post laparoscopic cholecystectomy. The procedure was described to me by Dr. Leon this morning at 7:00 in the morning as an incredibly difficult and purulent gallbladder. He was able to complete it laparoscopically though. This morning, the patient is very distraught. She is in pain. Attempts to explain her pain and the treatment that I was going to prescribe today fell on deaf ears as she was too agitated to listen. Her son was present during our conversation, and I tried to explain to him how her recovery would likely be delayed because of the severity of her illness. OBJECTIVE: Temperature 99.0, pulse rate 107, respiratory rate 18, blood pressure 148/63, and 94% saturated on room air. On physical exam, the patient is agitated and complaining about pain. She wanted a different regimen of stronger pain medication. Lungs are clear to auscultation. Cardiovascular is regular. LABORATORY: White cell count is 13.7 and hematocrit 41.4. Blood sugar has been on the rise and is now topping out at around 300. It is noted that all previous cardiac enzymes were negative. Alkaline phosphatase and liver function tests were moderately elevated, but seemed to be on a downward trend. ASSESSMENT AND PLAN: 1. The patient is status post a very difficult laparoscopic cholecystectomy per Dr. Leon. She remains on antibiotics and support. I imagine that her pain control has been difficult to this point mainly due to multiple factors including poor glycemic control, extreme agitation and anxiety on the part of the patient, and her chronic use of pain medications for her chronic back pain. It is difficult to achieve appropriate levels of pain control. We also are concerned, because of the difficulty of surgery, and the postoperative ileus. I plan to give the patient some regular and higher doses of Dilaudid. She will get Relistor subcutaneously. I am also going to hang Ofirimev 3] times a day for the next 3 days. We will continue to monitor the patient's white count, and she will remain on antibiotics. 2. The patient's blood sugar has escalated. I think that is partially due to her level of agitation and anxiety. She was on split mix regimen of insulin. I have given her dose of Lantus as well as increased the level of her sliding scale insulin. We will continue to monitor this, and hopefully we can get her back to a split mix regimen as soon as possible as she is usually well controlled. 3. Hypertension as noted. 4. Chest pain. The patient's cardiac enzymes have been negative, and she was seen by Cardiology. Everything seems to be okay. 5. Reflux disease. Aware. 6. Chronic lower back pain. We are aware of this. 7. The patient's anxiety will be addressed with regular dosing of Xanax twice daily. cc: Jaquan Leong MD MTDD
[2018-12-04] MEDS ORDERED: PRILOSEC PO ONE (19:51)
[2018-12-04] MEDS ORDERED: MAALOX PLUS LIQUID PO ONE (19:51)
[2018-12-05] MEDS: OFIRMEV 1000 MG/ISOTONIC SOLN 1,000 MG/100 ML BOTTLE IV SCH ×3 (00:05→17:14)
[2018-12-05] MEDS: ZOSYN 3.375 GM in NS 50 ML IV SCH ×5 (00:05→23:59)
[2018-12-05] MEDS: NS 1,000 ML IV SCH ×4 (00:05→23:46)
[2018-12-05] MEDS: DILAUDID IV PRN ×6 (00:20→22:08)
[2018-12-05] MEDS: HUMALOG SUBQ SCH ×4 (05:39→22:05)
[2018-12-05] MEDS: PRILOSEC PO SCH ×2 (05:39→06:00)
[2018-12-05] MEDS: ZOFRAN IV PRN ×2 (05:45→22:06)
[2018-12-05] MEDS: PREMARIN PO SCH (08:19)
[2018-12-05] MEDS: XANAX PO SCH ×2 (08:19→20:29)
[2018-12-05] MEDS: ASPIRIN EC PO SCH (08:19)
[2018-12-05] MEDS: COZAAR PO SCH (08:19)
--- NOTE | 2018-12-05 08:58 | GENERAL SURGERY PROGRESS NOTE ---
DATE: 12/05/2018 SUBJECTIVE: Patient seems to be doing better this morning. OBJECTIVE: Vital Signs: The patient is currently afebrile. Her vital signs are stable. General Examination: No acute distress. Cardiovascular: Regular rate and rhythm. Lungs: Grossly clear. Abdomen: Soft. Appropriately tender. NHAN drain in place. Still looks like serosanguineous output. No bile noted. Laboratory: From yesterday reviewed. Bilirubin is normal. AST, ALT, and alkaline phosphatase are all trending down. ASSESSMENT AND PLAN: A 78-year-old female status post laparoscopic cholecystectomy for suppurative cholecystitis. Postoperative state. At this time, she seems to be doing okay. We will advance her to a low-fat diet. We will need to monitor her Prosper-Watts drain output. We will keep her on antibiotics, given the amount of contamination in her abdomen. We will keep the Prosper-Watts drain in place. Pain control is going to be somewhat of an issue, so we will continue to monitor her and see if we can get good pain control. cc: MD Jaquan Sue MD
[2018-12-05] MEDS: HUMALOG MIX 75/25 SUBQ SCH (15:56)
--- NOTE | 2018-12-05 16:21 | PROGRESS NOTE ---
DATE: 12/05/2018 SUBJECTIVE: The patient states she feels much better than yesterday. She states she has passed some gas and belched several times, which made her abdomen feel considerably better. She has gotten up to walk to the bathroom to urinate multiple times and is feeling better. She still does not have much appetite. She has not run any fevers or had any chills. She has had no nausea and vomiting. She still has drainage from her right upper quadrant HNAN drain. OBJECTIVE: Vital Signs: 97.6, 94, 137/65, 95% saturated on room air. General: The patient is alert, oriented, conversive and appropriate. She is much calmer than yesterday. Lungs: Are clear. Cardiovascular: Regular. Abdomen: Shows scarce bowel sounds. She is still diffusely tender. The drain and bandage around the drain in the right upper quadrant has bloody discharge and the drain contains a bloody possibly bilious discharge. LABORATORIES: None. ASSESSMENT AND PLAN: 1. The patient seems to be recovering well from a pretty serious case of cholecystitis. She is postop and doing much better today. Dr. Leon has advanced her diet. We will continue antibiotics for abdominal infection given the amount of pus in her gallbladder. Pathology is still pending. 2. The patient's diabetes is not well controlled at present. She is just now starting to eat and I am going to put her back on her home regimen of 75/25 mix with sliding scale still intact. 3. The patient's blood pressure is stable. 4. The patient's anxiety and pain control is adequate. cc: Jaquan Leong MD
[2018-12-06] MEDS: DILAUDID IV PRN ×4 (03:00→21:38)
[2018-12-06] MEDS: MAALOX PLUS LIQUID PO PRN ×2 (03:22→21:08)
[2018-12-06] MEDS: OFIRMEV 1000 MG/ISOTONIC SOLN 1,000 MG/100 ML BOTTLE IV SCH (03:53)
--- NOTE | 2018-12-06 06:50 | GENERAL SURGERY PROGRESS NOTE ---
DATE: 12/06/2018 SUBJECTIVE: The patient seems to be doing okay, although she said she has had a rough night. OBJECTIVE: Vital Signs: The patient is currently afebrile, although her O2 saturation is monitoring 88%. She seems to be resting fine. General: No acute distress. Resting comfortably. Cardiovascular: Regular rate and rhythm. Lungs: No increased labored breathing. Abdomen: Soft, appropriately tender. Prosper-Watts drain in place with just sanguinous output. No bile noted. ASSESSMENT AND PLAN: A 78-year-old female status post laparoscopic cholecystectomy for suppurative cholecystitis. Postoperative state at this time, she is doing okay. Her Prosper-Watts drain has not shown any drainage that looks bilious. I think she is probably close to being able to be discharged home. She probably needs to continue on some antibiotics and we will switch her off IV antibiotics and transition her over to Augmentin. Pain control is still going to be an issue, but hopefully we can get her pain a little bit better controlled with the plan on discharge in the near future. cc: MD Jaquan Sue MD
[2018-12-06] MEDS: PRILOSEC PO SCH (07:03)
[2018-12-06] MEDS: HUMALOG SUBQ SCH ×4 (07:04→21:14)
[2018-12-06 07:22] LABS: BASO# 0.02 X1000 (0.0-0.2); BASO% 0.1 % (0.0-0.8); EOS% 0.6 % (0.0-10.0); HEMATOCRIT 34.8 % (37.0-47.0); HEMOGLOBIN 10.9 g/dL (12.0-16.0); IMM GRAN# 0.04 X1000 (0.0-0.04); IMM GRAN% 0.2 % (0.0-0.5); LYMPH% 6.1 % (20.5-51.1); MCH 28.5 PG (27-31); MCHC 31.3 g/dL (33-37); MCV 90.9 FL (81-99); MONO# 1.22 X1000 (0.11-0.59); MONO% 6.8 % (1.7-9.3); MPV 9.4 FL (7.4-10.4); NEUT# 15.45 X1000 (1.4-6.5); NEUT% 86.2 % (42.2-75.2); PLT 381 X1000 (130-400); RBC 3.83 XMIL (4.2-5.4); RDW 12.5 % (11.5-14.5); WBC 17.93 X1000 (4.8-10.8)
[2018-12-06 07:45] LABS: AGAP 14; ALB/GLOB RATIO 0.7; ALBUMIN 2.4 g/dL (3.5-5.0); ALKALINE PHOSPHATASE 141 U/L (32-104); BUN 12 mg/dL (8-22); CALCIUM 8.2 mg/dL (8.8-10.2); CHLORIDE 102 mmol/L (98-107); COSMO 285; CREATININE 0.6 mg/dL (0.5-0.9); ESTIMATED GFR > 60; GLUCOSE 264 mg/dL (70-104); GOT 7 U/L (10-30); GPT 23 U/L (10-36); POTASSIUM 3.7 mmol/L (3.5-5.1); SODIUM 138 mmol/L (136-145); TCO2 22 mmol/L (25-35); TOTAL BILIRUBIN 0.34 mg/dL (0.20-1.00); TOTAL PROTEIN 5.8 g/dL (6.3-8.3)
[2018-12-06] MEDS: NS 1,000 ML IV SCH (08:09)
[2018-12-06] MEDS: ZOFRAN IV PRN ×2 (08:10→13:56)
--- NOTE | 2018-12-06 08:52 | PROGRESS NOTE ---
DATE: 12/06/2018 SUBJECTIVE: The patient states that she is feeling better. She was able to get up some yesterday to go back and forth to the bathroom and to the hallway. Her abdomen is still somewhat tender. She is still passing gas. She is eating a little bit, but her appetite has not really returned. Pain control is effective. OBJECTIVE: Vital Signs: 98.4, 91, 18, 143/78, 91% saturated on room air. Lungs: The patient's lungs are clear. Cardiovascular: Regular and not tachycardic. Abdomen: Bowel sounds are present and are more prominent than they were yesterday. Her abdomen is still distended. She has some bloody drainage in her NHAN drain, but it is less than yesterday. LABORATORY: White cell count is elevated at 17.9, hematocrit 34.8. Serum electrolytes are good. Sugars 258. Liver function tests have continued to trend downward and have essentially returned to baseline level. ASSESSMENT AND PLAN: 1. The patient is status post cholecystectomy a couple of days ago. She is feeling much better. I plan to loosen up some of her tethers and discontinue her telemetry, ofirimev and IV fluids. I am going to start her back on her 4 times a day Reynolds which she has taken at home for many years. She will still have Dilaudid for breakthrough. Hopefully, she will not need it nearly as much. I am looking for discharge by Tuesday. Hopefully, we can get the drain out and get her stabilized at that point in sufficient form to go home. 2. The patient's diabetes is marginally controlled. We put her back on her 75/25 mix with sliding scale intact. 3. Blood pressure stable. 4. The patient's anxiety and pain control is adequate. We did add her Xanax which I think has helped. cc: Jaquan Leong MD MTDD
[2018-12-06] MEDS: HUMALOG MIX 75/25 SUBQ SCH ×2 (10:00→17:53)
[2018-12-06] MEDS: XANAX PO SCH (10:02)
[2018-12-06] MEDS: COZAAR PO SCH (10:03)
[2018-12-06] MEDS: PREMARIN PO SCH (10:03)
[2018-12-06] MEDS: AUGMENTIN PO SCH ×2 (10:04→21:08)
[2018-12-06] MEDS: NORCO-7.5 PO SCH ×5 (10:04→21:13)
[2018-12-06] MEDS: HYDROCHLOROTHIAZIDE PO SCH (10:21)
[2018-12-07] MEDS: DILAUDID IV PRN ×6 (01:24→22:01)
[2018-12-07] MEDS: XANAX PO SCH ×3 (01:29→22:10)
[2018-12-07] MEDS: MAALOX PLUS LIQUID PO PRN (04:30)
[2018-12-07] MEDS: PRILOSEC PO SCH (06:19)
[2018-12-07] MEDS: HUMALOG SUBQ SCH ×4 (06:20→22:12)
--- NOTE | 2018-12-07 06:30 | GENERAL SURGERY PROGRESS NOTE ---
DATE: 12/07/2018 SUBJECTIVE: The patient seems to be doing okay. She said she had a good day yesterday. Overall looks like she has been hemodynamically stable, although she had a little episode of tachycardia in the 130s. Otherwise, she has been relatively stable. LABORATORY: Her labs look appropriate for her postoperative procedure. Her bilirubin is not elevated. Her AST, ALT and alkaline phosphatase are all decreasing. She does not have bile coming out of her Prosper-Watts drain. From a surgical point of view, I think she can be discharged home in the next 24 hours. I would like to keep her Prosper-Watts drain in place and let her go home with it given the difficulty with her surgery and to monitor any kind of bile leak. cc: MD Jaquan Sue MD
[2018-12-07] MEDS: HUMALOG MIX 75/25 SUBQ SCH ×2 (07:49→18:59)
[2018-12-07] MEDS: AUGMENTIN PO SCH ×2 (08:40→22:10)
[2018-12-07] MEDS: HYDROCHLOROTHIAZIDE PO SCH (08:40)
[2018-12-07] MEDS: PREMARIN PO SCH (08:40)
[2018-12-07] MEDS: NORCO-7.5 PO SCH ×4 (08:40→22:10)
[2018-12-07] MEDS: COZAAR PO SCH (08:40)
[2018-12-07] MEDS: ZOFRAN IV PRN ×2 (09:29→22:01)
--- NOTE | 2018-12-07 13:25 | PROGRESS NOTE ---
DATE: 12/07/2018 SUBJECTIVE: The patient is sitting up at the side of the bed with her head in her hands. She is emotional and somewhat overwrought. She had a coughing spell this morning, which was fairly severe and made her abdomen start hurting again. She feels nauseated now and has not been eating her normal amount of food. PHYSICAL EXAMINATION: Vital Signs: 98.0, 95, 21, 151/76, 91% saturated on room air. The patient's lungs are clear. Cardiovascular is regular. Abdomen shows scarce bowel sounds. It is slightly distended, but she is obese. I do hear some bowel sounds present. She has sanguinous drainage in her NHAN drain. LABORATORY: There was no laboratory drawn today. I do note that the patient's blood sugar was 70 last night, and at 6 o'clock this morning was 64, 70 at 6:30 this morning, and then 110 at 11. ASSESSMENT AND PLAN: 1. The patient is status post cholecystectomy, still has a Prosper-Watts drain in, and according to her, Dr. Leon has told her that she is going to go home with this. It does not appear to be draining bile. Yesterday, she was started back on her [place] 7.5, but she says that is not holding her, and she is still requiring Dilaudid. I believe that she expects to be 100% pain free at all times, rather than having it tolerable. We discussed her getting up and moving around as much as possible. She seemed to have done this yesterday. We discussed nutrition and caloric intake, which is high enough to support recovery from surgery, as well as her usual insulin doses. 2. Noted that the patient had low sugar this morning. This is likely due to inadequate p.o. intake this morning and/or yesterday afternoon. Again encouraged to eat. 3. Blood pressure is stable. 4. Anxiety is reasonably controlled. She has continued on the Xanax during the hospitalization and will likely go home on some extended-release format of that. I am hopeful that she will have some more meaningful recovery today and be able to be discharged tomorrow. cc: Jaquan Leong MD
[2018-12-08] MEDS: DILAUDID IV PRN ×4 (02:20→11:51)
[2018-12-08] MEDS: ZOFRAN IV PRN (05:08)
--- NOTE | 2018-12-08 06:27 | GENERAL SURGERY PROGRESS NOTE ---
DATE: 12/08/2018 SUBJECTIVE: Patient seems to be doing okay. She is feeling better. OBJECTIVE: Vital signs: Patient is currently afebrile. Her vital signs are stable. General: No acute distress. Cardiovascular: Regular rate and rhythm. Lungs: Grossly clear. Abdomen: Soft. Appropriately tender. NHAN drain with serosanguineous output. ASSESSMENT AND PLAN: A 78-year-old female status post cholecystectomy. 1. Cholecystectomy. At this time, patient's cholecystectomy was because of suppurative cholecystitis. She is doing well. We have got her on Augmentin. I think she would probably go home with Augmentin. I think she can go home today. We will defer to her primary care physician. cc: MD Jaquan Sue MD
[2018-12-08] MEDS: HUMALOG SUBQ SCH ×2 (06:28→11:54)
[2018-12-08] MEDS: PRILOSEC PO SCH (06:29)
[2018-12-08] MEDS: HUMALOG MIX 75/25 SUBQ SCH (06:30)
[2018-12-08] MEDS: NORCO-7.5 PO SCH (09:04)
[2018-12-08] MEDS: XANAX PO SCH (09:04)
[2018-12-08] MEDS: AUGMENTIN PO SCH (09:04)
[2018-12-08] MEDS: COZAAR PO SCH (09:04)
[2018-12-08] MEDS: HYDROCHLOROTHIAZIDE PO SCH (09:04)
[2018-12-08] MEDS: PREMARIN PO SCH (09:04)
[2018-12-08] MEDS: ASPIRIN EC PO SCH (09:08)
--- NOTE | 2018-12-08 11:51 | DISCHARGE SUMMARY ---
ADMISSION DATE: 12/02/2018 DISCHARGE DATE: 12/08/2018 DISCHARGE DIAGNOSES: 1. Acute suppurative cholecystitis. 2. Generalized abdominal pain. 3. Generalized anxiety. 4. Hypertension. 5. Type 1 diabetes, poorly controlled. 6. Other chronic pain. CONSULTATIONS: Dr. Kevin Leon. PROCEDURES: Laparoscopic cholecystectomy. HOSPITAL COURSE: This 78-year-old white female presented with chest pain, but over the course of evaluation this evolved into more of an epigastric pain and abdominal ultrasound showed cholecystitis. Dr. Leon was consulted. Dr. Arellano had been consulted earlier as a result of the chest pain, but no findings were initially apparent in regard to chest pain. Dr. Leon took the patient to surgery and had a very difficult time with a suppurative gallbladder, but he was able to complete the procedure laparoscopically. The patient returned to the floor postoperatively and had considerable abdominal bloating and swelling, but fairly rapidly recovered from that. Her appetite was slow to return as well, but we eventually got her to where she was eating adequate amounts to reinstitute her usual insulin dose. The patient suffers from a fair degree of anxiety on a regular basis, and I put her on some alprazolam during her hospitalization, which seemed to calm her very effectively. We are going to continue this on outpatient basis at least temporarily. Postoperatively, the patient had a NHAN drain which continued to drain a small amount of sanguinous fluid. There did not appear to be any bile in that drain fluid. I am not sure what the plan is with the drain, but she could likely keep it in until she sees Dr. Leon next week. The patient was initially on Zosyn, but that was then changed to Augmentin per Dr. Leon's order, and she tolerated this well. She will be discharged home on the Augmentin. The only changes in the patient's home medication regimen are the addition of Augmentin and alprazolam ER once a day. Those prescriptions are on the discharge chart. The patient should arrange follow-up with Dr. Leon in 1 week and arrange to see me in about 2 weeks. cc: Jaquan Leong MD
[2018-12-08 11:53] VITALS: BP 143/67
--- NOTE | 2018-12-08 12:24 | Diag Imaging Result Doc PS360 ---
EXAM: FLAT/UPRIGHT ABD/1 VIEW CHEST INDICATION: abdominal bloating and pain, s/p cholecystectomy TECHNIQUE: 3 views COMPARISON: Chest radiograph dated 12/02/2018 FINDINGS: Cholecystectomy clips are noted in the right upper quadrant. A catheter also projects over the right upper quadrant. There are nonspecific bowel gas and stool patterns. There is no obstructive bowel pattern. There is no evidence of large volume free abdominal gas. There is blunting of the left costophrenic angle suggesting a possible small effusion. The lungs are grossly clear, otherwise. The cardiomediastinal silhouette and central vasculature are grossly unremarkable. IMPRESSION: 1.Nonspecific abdomen. 2.Suggestion of a small left basilar effusion. Electronically signed by Marcelo Velez 12/08/2018 12:22 PM
== END 2018-12-08 13:15 | disposition home or self-care (01) | DRG 418 ==
LOC: SUPCPDRO → ED 14:10 → 3N 17:55
PROVIDERS: ADMIT Internal Medicine; ATTEND Internal Medicine
CPT/HCPCS: 71020; 71046; 74022; 76705; 80053; 82550; 82948; 83880; 84484; 85025; 85610; 85730; 88304; 88313; 93005; 93010; 93306; 94761; 94799; 96374; 96375; 99285; A9270; C1751; J0131; J0330; J1170; J1650; J1815; J2270; J2405; J2543; J7030; J7120; Q9966; Q9967; XXXXX

== ENCOUNTER 2019-02-02 00:25 | Inpatient (IN) ==
[2019-02-02 02:21] LABS: URINE SOURCE CATH
[2019-02-02 02:25] LABS: BILIRUBIN URINE NEGATIVE (NEGATIVE); BLOOD URINE TRACE (NEGATIVE); COLOR ORANGE; GLUCOSE URINE >1000 mg/dL (NEGATIVE); KETONE URINE 10 mg/dL (NEGATIVE); LEUKOCYTES URINE LARGE (NEGATIVE); NITRITE URINE POSITIVE (NEGATIVE); PROTEIN URINE TRACE mg/dL (NEGATIVE); SP GRAVITY URINE 1.022; TURBIDITY URINE HAZY (CLEAR); UR EPITHELIAL CELLS <10 /HPF (<10); URINE BACTERIA 4+ /HPF; URINE RBC <10 /HPF (<10); URINE WBC TNTC /HPF (<10); UROBILINOGEN URINE NORMAL (NORMAL)
[2019-02-02 02:50] LABS: UR AMPHETAMINES QUAL NONE DETECTED (NONE DETECT); UR BARBITUATES QUAL NONE DETECTED (NONE DETECT); UR BENZODIAZEPIN QUAL PRESUMPTIVE POSITIVE (NONE DETECT); UR CANNABINOIDS QUAL NONE DETECTED (NONE DETECT); UR COCAINE QUAL NONE DETECTED (NONE DETECT); UR METHADONE QUAL NONE DETECTED (NONE DETECT); UR OPIATES QUAL PRESUMPTIVE POSITIVE (NONE DETECT); UR OXYCODONE QUAL NONE DETECTED (NONE DETECT); UR PCP QUAL NONE DETECTED (NONE DETECT)
[2019-02-02 02:54] LABS: BASO# 0.03 X1000 (0.0-0.2); BASO% 0.3 % (0.0-0.8); EOS# 0.07 X1000 (0.0-0.7); EOS% 0.7 % (0.0-10.0); HEMATOCRIT 41.8 % (37.0-47.0); HEMOGLOBIN 13.6 g/dL (12.0-16.0); IMM GRAN# 0.04 X1000 (0.0-0.04); IMM GRAN% 0.4 % (0.0-0.5); LYMPH# 2.81 X1000 (1.2-3.4); LYMPH% 27.4 % (20.5-51.1); MCHC 32.5 g/dL (33-37); MONO# 1.07 X1000 (0.11-0.59); MONO% 10.4 % (1.7-9.3); MPV 9.3 FL (7.4-10.4); NEUT# 6.25 X1000 (1.4-6.5); NEUT% 60.8 % (42.2-75.2); PLT 379 X1000 (130-400); RBC 4.86 XMIL (4.2-5.4); RDW 14.6 % (11.5-14.5); WBC 10.27 X1000 (4.8-10.8)
[2019-02-02] MEDS ORDERED: ROCEPHIN 1 GM in NS 50 ML IV ONE (03:01)
[2019-02-02] MEDS ORDERED: NS 1,000 ML IV ONE (03:01)
[2019-02-02 03:23] LABS: AGAP 8; ALBUMIN 3.2 g/dL (3.5-5.0); ALKALINE PHOSPHATASE 101 U/L (32-104); BUN 10 mg/dL (8-22); CALCIUM 8.7 mg/dL (8.8-10.2); CHLORIDE 100 mmol/L (98-107); COSMO 270; CREATININE 0.7 mg/dL (0.5-0.9); ESTIMATED GFR > 60; GLUCOSE 153 mg/dL (70-104); GOT 12 U/L (10-30); GPT 9 U/L (10-36); LIPASE 32 U/L (13-60); SODIUM 134 mmol/L (136-145); TCO2 26 mmol/L (25-35); TOTAL BILIRUBIN 0.38 mg/dL (0.20-1.00); TOTAL PROTEIN 6.3 g/dL (6.3-8.3)
--- NOTE | 2019-02-02 06:32 | PROVIDER DOCUMENTATION ---
This chart was entered by Fabiola Rouse Scribe, acting as scribe for Brandi Abdul MD. HPI-Neurological Disorder - General Chief Complaint: Altered Mental Status Stated Complaint: AMS Time Seen by Provider: 02/02/19 01:20 Source: patient, family Allergies/Adverse Reactions: Patient Allergies Allergy/AdvReac Type Severity Reaction Status Date / Time brandon Allergy Unknown Verified 02/02/19 01:19 codeine Allergy NAUSEA/VOMI Verified 02/02/19 01:19 TING pineapple Allergy Unknown Verified 02/02/19 01:19 red dye Allergy Unknown Verified 02/02/19 01:19 Home Medications: Home Medication List Medication Instructions Recorded Confirmed Last Taken Type Aspirin [Aspir-Low] 81 mg PO DAILY 12/02/18 02/02/19 Unknown History Estrogens, Conjugated [Premarin] 0.625 mg PO DAILY 12/02/18 02/02/19 Unknown History Hydrochlorothiazide 25 mg PO DAILY 12/02/18 02/02/19 Unknown History Losartan [Cozaar] 100 mg PO DAILY 12/02/18 02/02/19 Unknown History Pantoprazole [Protonix] 40 mg PO DAILY@0700 12/02/18 02/02/19 Unknown History Alprazolam E.r. [Xanax Xr] 0.5 mg PO QAM #30 tab 12/08/18 02/02/19 Unknown Rx Tjmkq-D-Avhoiazxkldhl [Beano] 1 - 2 tab PO AC 02/02/19 02/02/19 Unknown History Hydrocodone/APAP 7.5 mg/325 mg 1 ea PO 4XDAY PRN 02/02/19 02/02/19 Unknown History [[place]-7.5] Insulin Humalog 75/25 [Humalog Mix 22 unit SUBQ QPM 02/02/19 02/02/19 Unknown History 75/25] Insulin Humalog 75/25 [Humalog Mix 30 unit SUBQ QAM 02/02/19 02/02/19 Unknown History 75/25] Insulin Lispro [Humalog] 1 unit SQ AC + HS PRN 02/02/19 02/02/19 Unknown History Pumpkin Seed Extract/Soy Germ [Azo 1 cap PO DAILY 02/02/19 02/02/19 Unknown History Bladder Control Capsule] - History of Present Illness-Neuro Nature of Presenting Problem: Pt 79/F presenting to ED w/ AMS. Son at bedside sts that he talked to her around 2:30 today and she was fine, talked to her again around 9pm and she was confused and did not know who he was. She was very weak and he had to help her stand but appeared to be globally weak rather than weak on the right or left. She has been mumbling and confused w/ her words, and then will briefly make sense again. Pt has IDDM as well and blood sugar levels w/ EMS were 301, 400 at home. Was given insulin and she ate a snack. Pt confused on arrival and unable to provide history. Son also states pt had a cholecystetcomy on 12/03/[address] Leon which had a prolonged post-operative course due to the severity of her cholecystitis and pt has been generally weak ever since. Severity: reports: moderate Onset/Duration: reports: 4-6 hours ago Timing: reports: still present Context: reports: none Character of Altered Mental Status: reports: disoriented Any recent trauma/injury?: reports: none Character of Deficits: reports: new weakness, altered sensation Cognitive Baseline: alert but disoriented Gait Baseline: walks without assistance Associated Symptoms: reports: confusion, other ("word salad"). denies: headache, slurred speech Similar Symptoms Previously?: No Recently seen or treated by another doctor?: No Review of Systems - Adult - REVIEW OF SYSTEMS - ADULT Constitutional: reports: no symptoms reported. denies: chills, fever Eyes: reports: no symptoms reported Ears, Nose, Mouth & Throat: reports: no symptoms reported Cardiovascular: reports: no symptoms reported Respiratory: reports: no symptoms reported Gastrointestinal: reports: no symptoms reported. denies: abdominal pain, diarrhea, nausea, vomiting Genitourinary: reports: no symptoms reported Musculoskeletal: reports: no symptoms reported Integumentary: reports: no symptoms reported Neurological: reports: other (word salad). denies: dizziness/vertigo, heada marcos/migraines, numbness, slurred speech Psychiatric: reports: no symptoms reported Endocrine: reports: no symptoms reported Hematologic/Lymphatic: reports: no symptoms reported Allergic/Immunologic: reports: no symptoms reported All Other Systems: Reviewed and Negative Past History - Adult - PAST MEDICAL HISTORY-ADULT Review of Records: reports: Old Records Reviewed, Nursing Assessment Review, Medications Reviewed, Social history reviewed & non-contributory. Major Childhood Illnesses: reports: denies history Cardiovascular: reports: denies history Respiratory: reports: denies history Gastrointestinal: reports: denies history Obstetrical/Gynecological: reports: denies history Genitourinary: reports: denies history Musculoskeletal: reports: denies history Neurological: reports: denies history Psychiatric: reports: denies history Endocrine/Immune: reports: denies history, Diabetes Diabetes Type: Type 1 Other Conditions: reports: denies history - FAMILY HISTORY Family History: reviewed, not pertinent - SOCIAL HISTORY Smoking: denies, non-smoker Substance Use: none/never Alcohol Use Frequency: never Living Situation: alone Physical Exam- Neurological - Physical Exam-Neuro Initial Vital Signs Reviewed: Yes General Appearance: appears well, alert, no apparent distress Eye Exam: bilateral eye: normal inspection, PERRL, EOMI HENMT: normocephalic/atraumatic, moist mucous membranes, normal ENT inspection, TMs normal, pharynx normal Head Injury: no evidence of injury Neck: full range of motion, supple, normal inspection Respiratory: lungs clear, normal breath sounds Cardiovascular: normal peripheral pulses, regular rate, rhythm, no edema, no JVD Abdominal Exam: soft Extremity: normal range of motion, non-tender, normal gait educational advisor Exam: normal hearing, normal speech, PERRL Motor/Sensory: no motor deficit, no sensory deficit, no pronator drift Neurologic: educational advisor II-XII nml as tested, grossly normal, no motor/sensory deficits, aphasia (partial expressive) Integumentary: normal color, warm/dry Psych/Mental Status: other (partially oriented. Will answer questions correctly and then start speaking in "word salad") - [place] Coma Scale Best Eye Response: (4) open spontaneously Best Verbal Response: (4) confused conversation Best Motor Response: (6) obeys commands Progress - PLAN OF CARE/RESULTS Progress/Plan/Lab Results: Vital Signs - 8 hr 02/02/19 01:02 02/02/19 01:07 02/02/19 01:31 Temperature 98.2 F Pulse Rate 91 H 103 H Respiratory Rate 19 20 Blood Pressure 163/87 163/87 156/79 O2 Sat by Pulse Oximetry 94 L 93 L 97 02/02/19 02:01 02/02/19 02:31 02/02/19 03:01 Temperature Pulse Rate 95 H 94 H Respiratory Rate 19 18 Blood Pressure 159/78 148/74 150/75 O2 Sat by Pulse Oximetry 96 95 95 02/02/19 03:15 02/02/19 03:31 02/02/19 04:00 Temperature Pulse Rate 93 H 102 H Respiratory Rate 19 31 H Blood Pressure 148/80 O2 Sat by Pulse Oximetry 95 96 94 L 02/02/19 04:01 Temperature Pulse Rate 97 H Respiratory Rate 17 Blood Pressure 162/103 O2 Sat by Pulse Oximetry 95 Laboratory Results - last 24 hr 02/02/19 02/02/19 02/02/19 01:43 02:15 02:15 WBC RBC Hgb Hct MCV MCH MCHC RDW Std Deviation Plt Count MPV Immature Gran % (Auto) Neut % (Auto) Lymph % (Auto) [place] % (Auto) Eos % (Auto) Baso % (Auto) Immature Gran # (Auto) Neut # (Auto) Lymph # (Auto) [place] # (Auto) Eos # (Auto) Baso # (Auto) Sodium Potassium Chloride Carbon Dioxide Anion Gap BUN Creatinine Estimated GFR/1.73 m2 BUN/Creatinine Ratio Glucose POC Glucose 168 H Calculated Osmolality Calcium Total Bilirubin AST ALT Alkaline Phosphatase Total Protein Albumin Globulin Albumin/Globulin Ratio Lipase Urine Source CATH Urine Color ORANGE Urine Turbidity HAZY Urine pH 6.0 Ur Specific [place] 1.022 Urine Protein TRACE A Ur Glucose (Stick) >1000 A Ur Ketones (Stick) 10 A Urine Blood TRACE A Urine Nitrite POSITIVE A Urine Bilirubin NEGATIVE Urobilinogen Dipstick NORMAL Urine Leukocytes LARGE A Urine WBC (Auto) TNTC A Urine RBC (Auto) <10 U Epithel Cells (Auto) <10 Urine Bacteria (Auto) 4+ Urine Opiates Screen PRESUMPTIVE POSITIVE A Ur Oxycodone Screen NONE DETECTED Ur Methadone, Qual NONE DETECTED Ur Barbiturates Screen NONE DETECTED Ur Phencyclidine Scrn NONE DETECTED Ur Amphetamines Screen NONE DETECTED U Benzodiazepines Scrn PRESUMPTIVE POSITIVE A Urine Cocaine Screen NONE DETECTED U Cannabinoids Screen NONE DETECTED Plasma/Serum Ethyl Alc 02/02/19 02/02/19 02/02/19 02:37 02:37 02:37 WBC 10.27 RBC 4.86 Hgb 13.6 Hct 41.8 MCV 86.0 MCH 28.0 MCHC 32.5 L RDW Std Deviation 14.6 H Plt Count 379 MPV 9.3 Immature Gran % (Auto) 0.4 Neut % (Auto) 60.8 Lymph % (Auto) 27.4 [place] % (Auto) 10.4 H Eos % (Auto) 0.7 Baso % (Auto) 0.3 Immature Gran # (Auto) 0.04 Neut # (Auto) 6.25 Lymph # (Auto) 2.81 [place] # (Auto) 1.07 H Eos # (Auto) 0.07 Baso # (Auto) 0.03 Sodium 134 L Potassium 4.0 Chloride 100 Carbon Dioxide 26 Anion Gap 8 BUN 10 Creatinine 0.7 Estimated GFR/1.73 m2 > 60 BUN/Creatinine Ratio 14 Glucose 153 H POC Glucose Calculated Osmolality 270 Calcium 8.7 L Total Bilirubin 0.38 AST 12 ALT 9 L Alkaline Phosphatase 101 Total Protein 6.3 Albumin 3.2 L Globulin 3.1 Albumin/Globulin Ratio 1.0 Lipase 32 Urine Source Urine Color Urine Turbidity Urine pH Ur Specific [place] Urine Protein Ur Glucose (Stick) Ur Ketones (Stick) Urine Blood Urine Nitrite Urine Bilirubin Urobilinogen Dipstick Urine Leukocytes Urine WBC (Auto) Urine RBC (Auto) U Epithel Cells (Auto) Urine Bacteria (Auto) Urine Opiates Screen Ur Oxycodone Screen Ur Methadone, Qual Ur Barbiturates Screen Ur Phencyclidine Scrn Ur Amphetamines Screen U Benzodiazepines Scrn Urine Cocaine Screen U Cannabinoids Screen Plasma/Serum Ethyl Alc Orders Category Date Time Status IV Insertion ORDERED Care 02/02/19 01:36 Completed CHEST-1 VIEW [RAD] Stat Exams 02/02/19 01:[address] ABD/PELVIS W/IV CONT ONLY [CT] Stat Exams 02/02/19 01:[address] HEAD W/O CONTRAST [CT] Stat Exams 02/02/19 01:36 Taken ALCOHOL BLOOD Stat Lab 02/02/19 02:37 Completed CBC WITH DIFF [HEME] Stat Lab 02/02/19 02:37 Completed COMPREHENSIVE METABOLIC PANEL [CHEM] Stat Lab 02/02/19 02:37 Completed LACTATE, PLASMA [CHEM] Stat Lab 02/02/19 05:40 Received LIPASE [CHEM] Stat Lab 02/02/19 02:37 Completed URINALYSIS W/POSS RFLX CULT [URINALYSIS] Stat Lab 02/02/19 02:15 Completed URINE CULTURE [RM] Routine Lab 02/02/19 02:28 Received URINE DRUG SCREEN Stat Lab 02/02/19 02:15 Completed 0.9% Sodium Chloride Inj [Ns] 1,000 ml Med 02/02/19 03:01 Discontinued IV 999 mls/hr CefTRIAXONE [Rocephin] 1 gm Med 02/02/19 03:01 Discontinued 0.9% Sodium Chloride Inj [Ns] 50 ml IV NOW ams with some possible expressive aphasia, remainder of neurological exam non- focal and as pt last seen normal 11+ hours ago is not a TPA candidate. Will further evaluate for causes including but not limited to CVA, TIA, ACS, uti, pna, electrolyte imbalance, other infectious process. Result Diagrams: 02/02/19 02:37 02/02/19 02:37 - REASSESSMENT Reassessment #1 Status: unchanged (continued confusion with some expressive type aphasia, minimal RUQ ttp, also with marked UTI treated with ceftriaxone and CT A/P results discussed with Dr. Martinez, general surgeon finance and administration manager, who will evaluate pt this am and would like pt admitted to the hospitalist. Discussed case with Dr. Guzman, Hospitalist, who will see and admit pt.) - EKG 1 Time of EKG reading by physician:: 02:15 EKG Read and Signed by:: Brandi Abdul EKG Interpretation (*Must complete 3 of following elements*): Normal (Sinus Rhythm, rate 96, no acute st changes, normal axis and intervals) - CT/MRI 1 CT Study: Head Impression: Normal (per radiologist read "general involutional changes and chronic microvascular changes noted, no acute abnormality identified") 2 CT Study: Abdomen, Pelvis Impression: Abnormal (Per radiologist read: "small fluid collection within the gallbladder fossa is of uncertain etiology but post operative abscess is a possibility given the edematous/inflammatory appearance of the adjacent liver parenchyma and adjacent fat stranding") Departure - Departure Date of Disposition Decision: 02/02/19 Time of Disposition Decision: 06:31 DIAGNOSIS: Aphasia, Gallbladder abscess Altered mental state Qualifiers: Altered mental status type: unspecified Qualified Code(s): R41.82 - Altered mental status, unspecified UTI (urinary tract infection) Qualifiers: Urinary tract infection type: site unspecified Hematuria presence: without hematuria Qualified Code(s): N39.0 - Urinary tract infection, site not specified Disposition: ADMITTED INPATIENT 09 Certified Medical Emergency: Emergent Condition: Fair Referrals and Follow-Ups: Jaquan Leong MD [Primary Care Provider] - - Critical Care Note This patient required my direct & personal management of CC.: No Attestation - Physician/ CECILIO Attestation Patient care was provided by Advanced Practice Provider:: No The physician spent face to face time with patient:: Yes Advanced Practice Provider documentation review:: Supervising physician onsite and consulted in the evaluation and care of this patient. The physician did have a face to face encounter with the patient. - NIH Stroke Scale NIH Type: Initial Evaluation Level of Consciousness: 0-Alert LOC Commands (ask to open & close eyes;make a fist, let go): 0-Obeys Both Correctly Best Gaze (horizontal eye movement): 0-Normal Visual (use finger movement, counting or visual threat): 0-No Visual Loss Facial Palsy (show teeth or raise eyebrows & close eyes tght: 0-Symmetrical Movement Motor Function-left arm: 0-Normal Motor Function-right arm: 0-Normal Motor Function-left le-Normal Motor Function-right le-Normal Limb Ataxia([id number]-[id number], or heel to love): 0-No Ataxia Sensory(pin prick to face,arms,trunk,legs-compare side/side): 0-No Ataxia This chart was documented by the indicated scribe, (Fabiola Rouse, Scribe) and accurately reflects the services I performed and decisions made by me, Brandi Abdul MD, as attested by the provider's signature.
--- NOTE | 2019-02-02 06:58 | EKG Report ---
Test Performed on : 02/02/2019 02:10:34 AM Test Reason : ED. NO EKG ORDER FOR MUSE Blood Pressure : / mmHG Vent. Rate : 096 BPM Atrial Rate : 096 BPM P-R Int : 134 ms QRS Dur : 072 ms QT Int : 314 ms P-R-T Axes : 048 -11 047 degrees QTc Int : 396 ms Sinus rhythm. with premature atrial complexes. Otherwise normal ECG When compared with ECG of 03-DEC-2018 17:17, premature atrial complexes. are now present Unconfirmed Result
--- NOTE | 2019-02-02 07:30 | Diag Imaging Result Doc PS360 ---
EXAM: CHEST-1 VIEW 02/02/2019 HISTORY: AMS TECHNIQUE: AP portable at 0159 COMMENT: There is less blunting of the left costophrenic angle. Compared to 12/08/2018. There is also some improvement in atelectasis in both lower lobes. IMPRESSION: Improved left pleural effusion and bibasilar atelectasis. Electronically signed by Naif Bernard 02/02/2019 7:28 AM
[2019-02-02] MEDS ORDERED: TYLENOL PO ONE (08:08)
--- NOTE | 2019-02-02 08:15 | Diag Imaging Result Doc PS360 ---
EXAM: CT HEAD W/O CONTRAST INDICATION: AMS with aphasia TECHNIQUE: This exam was performed using automated exposure control, adjustment of mA or kV according to patient size, and/or use of iterative reconstruction technique. COMPARISON: 05/16/2018 FINDINGS: There is patchy low attenuation in the periventricular and subcortical white matter suggesting moderate microangiopathy, stable. There is no definite acute infarct given the limited sensitivity of CT versus MRI. There is no discrete intracranial mass, mass effect, or intracranial hemorrhage. The surrounding soft tissues and bony structures are essentially unremarkable. IMPRESSION: Stable chronic appearing white matter changes as described but no definite acute intracranial pathology by CT. Electronically signed by Marcelo Velez 02/02/2019 8:13 AM
--- NOTE | 2019-02-02 09:15 | Diag Imaging Result Doc PS360 ---
EXAM: CT ABD/PELVIS W/IV CONT ONLY INDICATION: AMS and Abdominal pain with recent masoud TECHNIQUE: This exam was performed using automated exposure control, adjustment of mA or kV according to patient size, and/or use of iterative reconstruction technique. COMPARISON: None. FINDINGS: There is mild subsegmental atelectasis at the lung bases. There has been a very recent cholecystectomy. There are metallic clips in the gallbladder fossa and there is a small 2 cm fluid collection in the gallbladder fossa. This probably represents a small seroma and Gelfoam packing. A biloma is less likely given the small size of the collection. There is stranding around the gallbladder fossa. This is probably postsurgical. However, it would be difficult to completely exclude an infectious component in the right clinical scenario. There is ill-defined low density in the liver parenchyma around the gallbladder fossa. Fatty infiltration or edema should be considered. If needed, MRI or possibly ultrasound may differentiate between these two processes. There is no significant biliary ductal dilatation. The spleen, pancreas, and adrenal glands are essentially unremarkable. There is a small wedge-shaped focus of low attenuation involving the lower pole of the right kidney. It is nonspecific. Consider focal pyelonephritis or even age-indeterminate focal infarct. The kidneys are essentially unremarkable, otherwise. The urinary bladder is unremarkable. There has been a prior hysterectomy. There is uncomplicated sigmoid colonic diverticulosis. There is increased stool in the rectum, which may represent a small rectal fecal impaction. There is no evidence of bowel obstruction. There is feculent material in multiple loops of small bowel suggesting slow bowel transit, however. There is a very small hiatal hernia. The remainder of the GI tract is essentially unremarkable. IMPRESSION: 1.Small fluid collection in the gallbladder fossa and surrounding stranding that is probably postsurgical related to a very recent cholecystectomy. A small biloma or infectious component are less likely but possible. 2.Low-attenuation in the right hepatic lobe adjacent to the gallbladder fossa that is nonspecific. Consider fatty infiltration versus nonspecific edema. Please see above discussion. 3.Possible small rectal fecal impaction. 4.Vascular material in multiple loops of small bowel without significant distention suggesting slow bowel transit. 5.Wedge-shaped focus of low attenuation at the lower pole of the right kidney. Consider focal pyelonephritis versus age-indeterminate renal cortical infarct. Electronically signed by Marcelo Velez 02/02/2019 9:13 AM
[2019-02-02] MEDS ORDERED: ZOFRAN IV PRN (09:42)
[2019-02-02] MEDS ORDERED: TYLENOL PO PRN (09:42)
[2019-02-02] MEDS ORDERED: ATIVAN IV ONE (09:46)
--- NOTE | 2019-02-02 11:12 | Diag Imaging Result Doc PS360 ---
MRI BRAIN W/WO CONTRAST - 02/02/2019 INDICATION: aphasia COMPARISON: Head CT 02/02/2019 FINDINGS: There is a single tiny dot of brightness on the diffusion-weighted imaging based at the cortex of the left parietal lobe. The appearance may be artifactual. The ventricles and sulci are normal in size and contour. No intracranial mass or hemorrhage. There is rather advanced cerebral white matter hyperintensity compatible with chronic microvascular disease. No abnormal contrast enhancement. Midline structures are unremarkable. IMPRESSION: 1. Single tiny focus of increased signal in the left parietal lobe cortex, possibly artifact. 2. Moderately advanced periventricular white matter chronic microvascular disease. No other acute process. Electronically signed by Elgin Slater 02/02/2019 11:10 AM
[2019-02-02] MEDS: HUMALOG SUBQ SCH ×3 (11:55→21:16)
--- NOTE | 2019-02-02 14:03 | HISTORY AND PHYSICAL ---
CHIEF COMPLAINT: Confusion. HISTORY OF PRESENT ILLNESS: This 79-year-old white female was seen in the office a couple weeks ago and was doing well following her cholecystectomy. She has also had follow-up with Dr. Leon, which has been positive. The patient's son stated that the patient was fine yesterday afternoon in conversation up until around 4:30 p.m. At approximately 9:30 p.m., he went to her home and she seemed confused and was unable to put words together in a cohesive fashion. She was also very agitated he eventually brought her to the emergency room. She had a workup there which revealed a normal CT scan of the brain and urinary tract infection. She was admitted for further workup. The patient requires inpatient monitoring because of multiple comorbidities and age. PAST MEDICAL HISTORY: 1. Type 1 diabetes mellitus. 2. Hypertension. 3. Hypercholesterolemia. 4. Chronic osteoarthritis of multiple joints. 5. Chronic lower back pain on chronic narcotic therapy. 6. Allergic rhinitis. 7. Gastroesophageal reflux disease. 8. Major depression. 9. History of palpitations. PAST SURGICAL HISTORY: 1. The patient has had multiple lumbar back surgeries. 2. Total hysterectomy age 27. 3. Breast reduction 2000. 4. Right shoulder surgery. 5. Cholecystectomy December 2018. ALLERGIES: Codeine, red dye, pineapple and brandon. SOCIAL HISTORY: The patient is a . She has never been a smoker. She has support of her family who checks on her quite frequently. FAMILY HISTORY: The patient's sister had myocardial infarction at age 52. Her grandmother had an MO in a her 50s. Her father had lung cancer. HEALTH HISTORY: The patient had a colonoscopy many years ago. She is up-to-date on tetanus and Prevnar 13. REVIEW OF SYSTEMS: Prior to the onset of symptomology by the patient, she had no other complaints that were new. The patient had not had any fever or chills. She had no cough, wheezing or shortness of breath. She had been in her normal state of mind. She had not had any nausea or vomiting. No diarrhea. She had not complained of dysuria. There have been no other notable neurological problems prior to admission. PRESENT MEDICATIONS: 1. Humalog Mix 75/25 30 units in the morning, 22 in the evening. 2. Premarin 0.625 p.o. daily. 3. Alprazolam ER 0.5 mg p.o. daily. 4. Aspirin 81 mg p.o. daily. 5. Hydrochlorothiazide 25 mg 1 p.o. daily. 6. Hydrocodone 7.5/325 1 p.o. q.i.d. 7. Losartan 100 mg p.o. daily. 8. Pantoprazole 40 mg p.o. daily. PHYSICAL EXAMINATION: GENERAL: The patient is a well-developed, well-nourished white female in no acute distress, but she is agitated. She seems to start to answer questions appropriately with them will trail off into the use of real words but in the inappropriate context or possibly even lacking context at all. HEENT: The sclerae are anicteric. Oral mucosa seems reasonably hydrated and normal coloration. NECK: Exam reveals no carotid bruits. LUNGS: Clear to auscultation. CARDIOVASCULAR: Regular and not tachycardic. ABDOMEN: Shows bowel sounds are present. She has a healing scar below her umbilicus, is otherwise normal. EXTREMITIES: There is no peripheral edema. NEUROLOGIC: The patient has a definite aphasia. Her speech is not slurred. She moves in the bed spontaneously and easily with her upper and lower extremities and has no observable neurological deficits. LABORATORY: White cell count 10.2, hematocrit 41.8. Sodium 134, BUN 10, creatinine 7, glucose 153, (at home the patient's glucose was 300+ on several readings last night), total bilirubin 0.38, albumin 3.2, lactate 1.6. Urinalysis showed large leukocytes, too numerous to count white blood cells, 4+ bacteria. Urine tox toxicology showed opiates and benzodiazepines as prescribed. ASSESSMENT/PLAN: 1. Two possibilities exist. First, the patient could have a metabolic encephalopathy due to urinary tract infection superimposed upon poorly controlled blood sugar and psychotropic medications. It seems that her neurological problem is a bit focused for a typical metabolic encephalopathy. I had ordered an MRI in the emergency room and appears to have 1 tiny little left parietal lesion which could possibly represent a lacunar infarct that has resulted in her aphasia. We will continue reserve this and address all other parameters to correct any aspect of this that is indeed a metabolic encephalopathy. 2. The patient will have fingerstick blood sugars, sliding scale insulin and diabetic diet. 3. Hypertension will be controlled with her usual medications. 4. Patient's chronic pain medications will be provided, but we may use this opportunity to try and wean her down to a lower dose overall. In the past, she has been intolerant of efforts to do so. 5. The patient's urinary tract infection is clearly evident on her urinalysis. We will send urine for culture and we will change antibiotics as appropriate. 6. The patient requires inpatient monitoring and will likely be in for anywhere from 2 to 4 days. Be please add after the last number on assessment. 7. Discharge will be eventually to home with the usual family support. cc: Jaquan Leong MD
[2019-02-02] MEDS ORDERED: HALDOL IV PRN (15:16)
[2019-02-02] MEDS ORDERED: ATIVAN IV PRN (15:16)
[2019-02-02] MEDS: NORCO-5 PO SCH ×2 (15:28→21:16)
[2019-02-03] MEDS: ROCEPHIN 1 GM in NS 50 ML IV SCH (05:57)
[2019-02-03] MEDS: PROTONIX PO SCH (06:05)
[2019-02-03] MEDS: HUMALOG SUBQ SCH ×4 (06:27→22:09)
[2019-02-03] MEDS: ASPIRIN EC PO SCH (08:18)
[2019-02-03] MEDS: COZAAR PO SCH (08:18)
[2019-02-03] MEDS: HUMALOG MIX 75/25 SUBQ SCH (16:19)
[2019-02-03] MEDS: XANAX XR PO SCH (19:51)
[2019-02-03] MEDS: NORCO-5 PO SCH ×2 (19:51→22:11)
[2019-02-04] MEDS: PROTONIX PO SCH (06:37)
[2019-02-04] MEDS: HUMALOG MIX 75/25 SUBQ SCH ×2 (06:37→18:50)
[2019-02-04] MEDS: ROCEPHIN 1 GM in NS 50 ML IV SCH (06:37)
[2019-02-04] MEDS: HUMALOG SUBQ SCH ×4 (06:38→21:33)
[2019-02-04] MEDS ORDERED: INSULIN PEN NEEDLES ONE (06:49)
[2019-02-04] MEDS: ASPIRIN EC PO SCH (09:50)
[2019-02-04] MEDS: NORCO-5 PO SCH ×3 (09:50→21:33)
[2019-02-04] MEDS: COZAAR PO SCH (09:50)
[2019-02-04] MEDS: XANAX XR PO SCH (09:50)
--- NOTE | 2019-02-04 11:05 | Carotid Study ---
DATE: 02/03/2019 PROCEDURE: Carotid duplex imaging. REFERRING PHYSICIAN: Dr. Zavala INTERPRETING PHYSICIAN: Dr. Arriola TECH: Tanya Hook RVT INDICATIONS: CVA--stroke. OBSERVED DATA RIGHT LEFT Brachial Blood Pressure Carotid Pulse Bruits: Carotid/Sub DIAGRAM OF ULTRASOUND IMAGING R L RIGHT INT EXT INT EXT LEFT David (cm/s) David (cm/s) Subclavian 130/0 Subclavian 187/0 CCA Proximal 102/9 CCA Proximal 86/10 CCA Distal 115/15 CCA Distal 105/9 Bulb 71/6 Bulb 60/4 ICA Proximal 69/9 ICA Proximal 29/9 ICA Mid 78/15 ICA Mid 62/15 ICA Distal 94/22 ICA Distal 113/21 ECA 139/9 ECA 78/3 Vertebral 56/8 Vertebral 66/10 ICA/CCA Ratio 0.81 ICA/CCA Ratio 1.08 % Stenosis 0 to 39 % Stenosis 0 to 39 PHYSICIAN INTERPRETATION: Mild atherosclerotic disease of the distal common and internal carotid arteries bilaterally without evidence of a hemodynamically significant lesion in either carotid system. cc: MD Chris Srinivasan MD Timothy P. Weirich, MD
[2019-02-05] MEDS: HUMALOG SUBQ SCH ×4 (06:32→21:51)
[2019-02-05] MEDS: PROTONIX PO SCH (06:32)
[2019-02-05] MEDS: HUMALOG MIX 75/25 SUBQ SCH ×2 (06:32→18:28)
[2019-02-05] MEDS: COZAAR PO SCH (09:38)
[2019-02-05] MEDS: XANAX XR PO SCH (09:38)
[2019-02-05] MEDS: NORCO-5 PO SCH ×3 (09:39→21:03)
[2019-02-05] MEDS: CEFTIN PO SCH ×2 (09:39→21:02)
[2019-02-05] MEDS: ASPIRIN EC PO SCH (09:39)
--- NOTE | 2019-02-05 15:39 | Diag Imaging Result Doc PS360 ---
CT ANGIOGRAM HEAD - 02/05/2019 INDICATION: stroke, dysphasia TECHNIQUE: Axial CT images were obtained after administering intravenous contrast. Three-dimensional angiographic images were generated. COMPARISON: 02/02/2019 FINDINGS: On the right side, there is dense multifocal calcification throughout the carotid siphon. The cavernous portion of the carotid artery is also involved. No significant stenosis. Estimated stenosis is less than 20%. The anterior and middle cerebral arteries are patent. On the left side, there is scattered vascular calcification of the supraclinoid internal carotid artery. At the supraclinoid portion, there is mild narrowing of about 33%. The left anterior cerebral artery arises from the right anterior cerebral artery, with a small anterior communicating artery. The left posterior cerebral artery has a origin, arising from the internal carotid artery. The vertebral arteries and basilar artery are normal. No stenosis or aneurysm. Posterior cerebral arteries are normal, although the left one arises from the internal carotid artery. IMPRESSION: Significant vascular calcification of both carotid siphons. Mild stenosis of the supraclinoid left internal carotid artery. Variant anatomy as described above. This exam was performed using automated exposure control, adjustment of mA or kV according to patient size, and/or use of iterative reconstruction technique Electronically signed by Elgin Slater 02/05/2019 3:37 PM
--- NOTE | 2019-02-05 16:41 | PROGRESS NOTE ---
DATE: 02/05/2019 SUBJECTIVE: The patient is awake and alert and her son is present during our interview. She has difficulties with word finding but can put together some sentences which makes sense, albeit it happens very slowly. She moves about in the bed freely. OBJECTIVE: Vital Signs: 97.7, 86, 18, 146/74, 97% saturated on room air. Lungs: Clear. Cardiovascular: Regular. Extremities: Show no peripheral edema. Neuropsychiatric: The patient is alert, oriented, and seems to understand everything perfectly. She has difficulty with expression of words and with word finding. ASSESSMENT AND PLAN: 1. Dr. Zavala has ordered over the weekend a consultation with Dr. Camara as well as a swallowing screen by the speech therapy folks. Hopefully, we will be able to get those done today and make a decision on the ultimate etiology of her aphasia. I think it is clear at this point it was not simply a metabolic encephalopathy driving this. 2. Patient's urinalysis has grown back Escherichia coli. She was switched to a 2nd generation cephalosporin by mouth over the weekend. I think this is an appropriate medication for treatment. No changes are planned. 3. The patient's diabetes is reasonably well controlled. Dr. Zavala had put her back on partial doses of her usual split mix regimen. We will continue sliding scale insulin as needed. She is eating well. 4. Patient's blood pressure is adequately controlled. 5. Gastroesophageal reflux has been addressed. 6. The patient continues on anxiolytic medications as she was at home. 7. The patient continues to require monitoring in the hospital. Hopefully, we can get our consultations and plan put together for discharge tomorrow. cc: Jaquan Leong MD
--- NOTE | 2019-02-05 17:28 | CONSULTATION ---
DATE OF CONSULTATION: 02/05/2019 ROOM: 318 B. HISTORY OF PRESENT ILLNESS: Ms. Dean is 79 years old and there is question of stroke. History from the patient, attentive son at the bedside, and review of hospital record is that she seemed well through the day , 4 days ago. That night, son checked on her and found her unable to communicate with language. Speech was slurred but, more prominently, she had trouble finding words. Blood sugar was 400 at home. She had a dose of insulin and rested to see if that might improve things. She was not better in the next hour or so and presented to the emergency room. She was evaluated and admitted. Son reports her trouble communicating was worse the next morning and then has been gradually improving ever since then. She is better today but not nearly back to normal. Workup includes noncontrast CT of the head which shows old white matter ischemic changes in both hemispheres but nothing focal or acute. Brain MRI shows subcortical white matter ischemic changes and also a single tiny signal on diffusion weighted imaging in the posterior left parietal lobe. Carotid ultrasound showed some plaque but no hemodynamically significant stenosis bilaterally. There is no history of prior stroke. She has never had an episode like this before. She did have headache at onset. There might have been some dizziness. She did not notice vision disturbance. She did not notice significant focal weakness. She seemed able to chew and swallow. Lab showed blood sugars 100s to 200s. Urine drug screen was positive for benzodiazepine and for opiates consistent with her home medication list including alprazolam and hydrocodone p.r.n. Vital sign record shows she has been afebrile. Systolic blood pressures have ranged 110s to 170s mostly. PHYSICAL EXAMINATION: On exam, she is awake, alert, attentive. She seems appropriate. Speech is minimally dysarthric but easily understood. Language function testing at the bedside shows trouble with naming parts of objects, trouble with right/left distinction, slight trouble with digit distinction, trouble repeating pronouns. I did not test reading or handwriting. Head and neck are unremarkable. Visual trejo are full tested grossly by confrontational finger counting. Extraocular movements are full. The right nasolabial fold is very slightly less prominent than the left, but I think this may be baseline and motility is good bilaterally. She has good power in the arms and legs. She did well on [id number] testing bilaterally. Limb tone is symmetric. Sensation is intact to pinprick and light touch testing over the limbs. I did not test her gait. Plantar response is silent bilaterally. IMPRESSIONS: 1. This appears to be dysphasia, maybe receptive more than expressive. 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 Sudden onset with slight worsening overnight and then steady improvement since then seems consistent with ischemic stroke. She has risk factors for ischemic cerebrovascular disease. However, the MRI scan findings are minimal and I am not certain that correlates with her clinical findings. I will order CT angiogram (renal function is very good) and further plans will depend on that report. We might consider EEG. I told her that I do not have any suggestion that would require that she stay in the hospital. She has had stable and improving course day by day since admission 4 days ago and we can complete workup as an outpatient, if needed. 2. Risk factors include diabetes mellitus, hypertension, dyslipidemia, age. I encouraged her to continue aggressive management. I also suggested she remain well hydrated particularly in the short term. Thanks for asking Neurology to see Ms. Dean. cc: MD Jaquan Simon III, MD MTDD
[2019-02-06] MEDS ORDERED: NS 1,000 ML ONE (06:53)
[2019-02-06] MEDS: HUMALOG SUBQ SCH (07:10)
[2019-02-06] MEDS: PROTONIX PO SCH (07:11)
[2019-02-06 07:14] VITALS: BP 154/78
[2019-02-06] MEDS: HUMALOG MIX 75/25 SUBQ SCH (09:49)
[2019-02-06] MEDS: XANAX XR PO SCH (09:50)
[2019-02-06] MEDS: CEFTIN PO SCH (09:50)
[2019-02-06] MEDS: NORCO-5 PO SCH (09:50)
[2019-02-06] MEDS: COZAAR PO SCH (09:50)
[2019-02-06] MEDS: ASPIRIN EC PO SCH (09:50)
--- NOTE | 2019-02-06 17:03 | DISCHARGE SUMMARY ---
ADMISSION DATE: 02/02/2019 DISCHARGE DATE: 02/06/2019 DISCHARGE DIAGNOSIS.: 1. Expressive aphasia. 2. Cerebral vascular accident. 3. Metabolic encephalopathy. 4. Urinary tract infection. 5. Hypertension. 6. Insulin-dependent diabetes mellitus. 7. Other chronic pain. 8. Status cholecystectomy. CONSULTATIONS: Jeet Camara. HOSPITAL COURSE: A 79-year-old white female was brought to the hospital due to inability to communicate. She had difficulty with word finding and was confused. She was evaluated in the emergency room and found to have a urinary tract infection and was admitted. When I saw the patient in the emergency room, she had a clear expressive aphasia which was separate from her confusion. She had a negative CT scan of the head and we performed an MRI that day which showed a tiny lesion in the left parietal area of the brain. The patient was admitted to the hospital, given some IV fluid resuscitation and antibiotics which was designed to treat her urinary tract infection. Her urine culture grew back E coli, which was sensitive to cephalosporins and she was started on p.o. cefuroxime after a couple days worth of IV antibiotics with Rocephin. On a daily basis the patient has expressive aphasia improved slightly. She had a swallowing screen which was normal and then Dr. Camara did a consultation who agreed that she had some type of vascular event. He ordered a CT angio, but this was not terribly revealing as to a source of infarct. On the day of discharge, the patient was eager to go home and although she still had some difficulty with word finding, her overall expressive abilities had improved since admission. During her hospitalization, her chronic narcotic dose was reduced to 5 mg of hydrocodone 3 times daily. The patient's diabetes and hypertension were reasonably or well controlled during her hospitalization. There were no changes in those medications. The patient is discharged home with instructions to follow up within 2 weeks in my office. cc: Jaquan Leong MD
== END 2019-02-06 11:27 | disposition home health service (06) | DRG 64 ==
LOC: ED 00:25 → 3N 10:08
PROVIDERS: ADMIT Internal Medicine; ATTEND Internal Medicine
CPT/HCPCS: 51701; 70450; 70496; 70553; 71010; 71045; 74177; 80053; 80101; 80301; 80307; 80320; 80324; 80345; 80346; 80353; 80358; 80361; 80365; 81001; 82055; 82948; 83605; 83690; 83992; 85025; 87077; 87088; 87186; 93005; 93306; 93880; 94761; 96361; 96365; 96375; 99285; A9270; A9579; G0431; G0434; G0479; G0480; G6040; J0696; J1815; J2060; J7030; P9612; Q9967; XXXXX